=== PATIENT | male | born 1950 | race African-American/Black ===

== ENCOUNTER 2019-01-05 15:17 | Inpatient (IN) ==
[2019-01-05] MEDS ORDERED: Naloxone 0.4 MG/ML INJ IVP PRN (17:15)
[2019-01-05] MEDS ORDERED: Ibuprofen 600 MG TABLET PO PRN (17:25)
[2019-01-05] MEDS ORDERED: Melatonin 3 MG TABLET PO PRN (17:25)
--- NOTE | 2019-01-05 17:35 | Internal Med History&Physical ---
Date of Encounter: 01/05/19 Time of Encounter: 17:31 Internal Medicine - H&P: HPI Chief complaint: Right-sided leg swelling and pain. Admitted From: Hospital to Hospital Transfer Plans for Post Hospital Care: Transfer Psych Facility History of present illness: Mr. Domingo is a 68 year old male with past medical history significant for COPD, knee pain, hypertension, mood disorder, and anxiety was transferred from [place] inpatient psych facility to the [facility] for increase right leg pain and swelling. Patient reports that he has been complaining of this pain for past few days. Patient reports it does not hurt while he is resting. It hurts after he he walks 1 block. Patient had TYLER done at the Center which showed right-sided TYLER of 0.21 suggesting a severe peripheral arterial disease. Patient also had ultrasound done at [facility] which showed suspected occlusion of right mid SFA. Past Med Surg Social Fam HX - Past Medical History Medical history: GERD, hypertension, myocardial infarction, other (PAD) Psychiatric history: anxiety, depression, PTSD - Past Surgical History Surgical History: no surgical history Additional surgical history: tendons right arm - Social History Smoking Status: Current every day smoker Smokeless Tobacco Status: No Alcohol use: none Drug use: none - Family History Mother Hx Family Cardiac Disorders: Yes (HTN) Father Hx Family Cardiac Disorders: Yes (HTN) Internal Medicine - H&P: Meds Albuterol Sulfate [Proventil Inhaler] 2 puff IH Q4H PRN 09/10/18 [History] Benazepril HCl [Lotensin] 20 mg PO DAILY 09/10/18 [History] Duloxetine HCl [Cymbalta] 60 mg PO DAILY 09/10/18 [History] Ibuprofen [Ibu] 800 mg PO TID PRN 09/10/18 [History] Melatonin [Melatin] 12 mg PO HS 09/10/18 [History] Mirtazapine [Remeron] 7.5 mg PO HS 09/10/18 [History] Naloxone [Narcan] 4 mg NS AD 09/10/18 [History] Tiotropium [place] [Spiriva Respimat] 2 puff IH DAILY 09/10/18 [History] Topiramate [Topamax] 50 mg PO HS 09/10/18 [History] amLODIPine [Norvasc] 5 mg PO HS 09/10/18 [History] hydrOXYzine HCl [Hydroxyzine HCl] 25 mg PO BID PRN 09/10/18 [History] Aspirin Enteric Coated [Aspirin EC] 81 mg PO DAILY tablet. 09/13/18 [Rx] Atorvastatin [Lipitor] 20 mg PO HS tablet 09/13/18 [Rx] Nitroglycerin 0.4 mg SL Q5M PRN tab.subl 09/13/18 [Rx] Aspirin 81 mg PO DAILY #30 tab.chew 11/09/18 [Rx] Allergy/AdvReac Type Severity Reaction Status Date / Time haloperidol [From Haldol] AdvReac Swelling Verified 09/10/18 11:52 of Lip/Tongue/Throat All Systems PM: A 10-system review of systems was performed and is negative for pertinent findings except as documented above in the HPI. - Constitutional Vitals: Temp Pulse Resp BP Pulse Ox 97.8 F 61 16 174/92 99 01/05/19 16:50 01/05/19 16:50 01/05/19 16:50 01/05/19 16:50 01/05/19 16:50 General appearance: Present: cooperative, A&O X 3 Exam: General: A & O 3, In no acute distress HENNT: PERRLA. Head atraumatic and makes supple CVS S1 and S2 regular, no murmur RS: Clear to air entry bilaterally, no wheeze, no crackles Abdomen: Soft and nontender. Bowel sounds normal 4 Extremities: No cyanosis, clubbing, and edema. Right sided swelling. Capillary refill normal. Feeble pulse on right side Neurology: Cranial II through XII normal. Motor strength 5/5 bilaterally. Sensation intact Internal Med - H&P Results - Labs CBC & Chem 7: 01/05/19 17:34 - Assessment and Plan (1) Superficial femoral artery occlusion Current Visit: Yes Status: Acute Assessment and plan: Recent presents from the [place] inpatient psych facility [facility] for increased right lower pain and swelling upon walking. Patient had ultrasound done at [facility] which showed suspected superficial mid femoral artery occlusion. TYLER index of 0.21 on the right leg. Patient was transferred to the [facility] for further management. - Continue aspirin - Consider adding statin - Consult on tobacco abuse - Vascular surgery on consult awaiting input - Will get Echo today - We will consider getting CT of lower extremity after blood work. (2) Mood disorder Current Visit: Yes Status: Chronic Assessment and plan: Continue duloxetine and Topamax. (3) Anxiety Current Visit: Yes Status: Chronic Assessment and plan: Continue hydroxyzine as needed for anxiety. (4) Hypertension Current Visit: No Status: Chronic Assessment and plan: Continue home anti-hypertensive medication. Qualifiers: Hypertension type: essential hypertension Qualified Code(s): I10 - Essential (primary) hypertension (5) COPD (chronic obstructive pulmonary disease) Current Visit: Yes Status: Chronic Assessment and plan: Continue Lipitor inhaler as needed. Qualifiers: COPD type: unspecified COPD Qualified Code(s): J44.9 - Chronic obstructive pulmonary disease, unspecified (6) Insomnia Current Visit: Yes Status: Chronic Assessment and plan: Continue melatonin and trazodone. Qualifiers: Insomnia type: unspecified Qualified Code(s): G47.00 - Insomnia, unspecified - Time Spent With Patient Total time spent is greater than 50% in coordination of care (as documented) at patient's floor/unit and/or counseling patient: Greater than 35 minutes
[2019-01-05 17:54] LABS: Basophils # 0.1 K/mcL (0.0-0.2); Basophils % 0.9 %; Eosinophils # 0.3 K/mcL (0.0-0.6); Eosinophils % 2.9 %; Hematocrit 37.9 % (37.5-50.1); Hemoglobin 12.4 g/dL (12.9-16.9); Immature Granulocytes % 1.4 % (0-4); Lymphocytes # 2.2 K/mcL (0.6-4.6); Lymphocytes % 24.7 %; Mean Corpuscular HGB Conc 32.7 g/dL (31.6-35.5); Mean Corpuscular Hemoglobin 26.4 pg (28.0-33.3); Mean Corpuscular Volume 80.6 fL (83.0-100.0); Mean Platelet Volume 8.8 fL (9.4-12.4); Monocytes # 0.5 K/mcL (0.0-1.3); Monocytes % 6.1 %; Neutrophils # 5.6 K/mcL (1.6-8.9); Platelet Count 255 K/mcL (140-400); Red Cell Distribution Width 15.5 % (11.5-14.5); White Blood Count 8.7 K/mcL (4.3-11.1)
[2019-01-05 17:59] LABS: INR 0.9; Prothrombin Time 9.9 Seconds (9.4-12.1)
[2019-01-05 18:02] LABS: Activated Partial Thrombo Time 35.8 Seconds (26.0-36.0)
[2019-01-05 18:13] LABS: Alanine Aminotransferase 19 Units/L (7-52); Albumin 4.8 g/dL (3.5-5.7); Albumin/Globulin Ratio 1.7 (1.1-2.2); Alkaline Phosphatase 57 Units/L (34-104); Aspartate Amino Transferase 19 Units/L (13-39); BUN/Creatinine Ratio 19 (6-26); Bilirubin,Total 0.3 mg/dL (0.3-1.0); Blood Urea Nitrogen 18 mg/dL (8-23); Calcium 9.6 mg/dL (8.6-10.3); Carbon Dioxide 31 mEq/L (23-29); Chloride 102 mEq/L (98-107); Globulin 2.9 g/dL (2.4-3.5); Glucose 100 mg/dL (70-105); Osmolality,Calculated 288 (280-300); Potassium 3.8 mEq/L (3.5-5.1); Sodium 138 mEq/L (136-145); Total Protein 7.7 g/dL (6.4-8.9); eGFR For African Americans > 60 (> 60); eGFR For Non-African Americans > 60 (> 60)
[2019-01-05] MEDS ORDERED: Isovue-370 500 ML BOTTLE IVP ONE (18:15)
[2019-01-05] MEDS: amLODIPine 5 MG TABLET PO SCH (18:26)
[2019-01-05] MEDS: 0.9 % Sodium Chloride 1,000 ML IVC SCH (18:27)
[2019-01-05] MEDS: traZODone 50 MG TABLET PO SCH (21:35)
[2019-01-06 06:08] LABS: Basophils # 0.1 K/mcL (0.0-0.2); Basophils % 0.8 %; Eosinophils # 0.3 K/mcL (0.0-0.6); Eosinophils % 2.9 %; Hemoglobin 11.3 g/dL (12.9-16.9); Immature Granulocytes % 1.8 % (0-4); Lymphocytes # 2.5 K/mcL (0.6-4.6); Lymphocytes % 29.8 %; Mean Corpuscular HGB Conc 33.2 g/dL (31.6-35.5); Mean Corpuscular Hemoglobin 26.2 pg (28.0-33.3); Mean Corpuscular Volume 78.7 fL (83.0-100.0); Mean Platelet Volume 8.6 fL (9.4-12.4); Monocytes # 0.6 K/mcL (0.0-1.3); Monocytes % 7.1 %; Neutrophils # 4.9 K/mcL (1.6-8.9); Platelet Count 234 K/mcL (140-400); Red Blood Count 4.32 M/mcL (4.19-5.50); Red Cell Distribution Width 15.2 % (11.5-14.5); Segmented Neutrophils % 57.6 %; White Blood Count 8.5 K/mcL (4.3-11.1)
[2019-01-06 07:01] LABS: BUN/Creatinine Ratio 20 (6-26); Blood Urea Nitrogen 17 mg/dL (8-23); Calcium 8.9 mg/dL (8.6-10.3); Carbon Dioxide 23 mEq/L (23-29); Chloride 106 mEq/L (98-107); Chol/HDL Ratio 3.4 (0-4.9); Cholesterol 177 mg/dL (< 200); Glucose 98 mg/dL (70-105); HDL Cholesterol 52 mg/dL (40-59); LDL Cholesterol,Calculated 108 mg/dL (0-99); Osmolality,Calculated 288 (280-300); Sodium 138 mEq/L (136-145); Triglycerides 83 mg/dL (< 150); eGFR For African Americans > 60 (> 60); eGFR For Non-African Americans > 60 (> 60)
[2019-01-06] MEDS ORDERED: Perflutren Lipid Microsphere 1.3 ML in 0.9 % Sodium Chloride 8.7 ML IVP ONE (07:06)
[2019-01-06] MEDS: amLODIPine 5 MG TABLET PO SCH (08:18)
[2019-01-06] MEDS ORDERED: Topiramate 25 MG CAP.SPRINK PO SCH (09:00)
[2019-01-06] MEDS ORDERED: Aspirin 325 MG TABLET PO SCH (09:00)
[2019-01-06] MEDS ORDERED: Fluticasone Propionate Nasal 50 MCG/SPRAY BOTTLE NS SCH (09:00)
--- NOTE | 2019-01-06 09:58 | Vascular/Endovasc Consult Note ---
Date of Encounter: 01/06/19 Time of Encounter: 09:54 Assessment and Plan (1) PAD (peripheral artery disease) Current Visit: Yes Status: Chronic Patient has right superficial femoral artery occlusion and bilateral tibial artery disease. Patient has significant right lower extremity symptoms. As he is admitted now to proceed with right lower extremity revascularization later today. I reviewed this plan with the patient regarding risks and benefits as well as Locations and alternatives. Patient wishes to proceed as recommended. (2) Hypertension Current Visit: Yes Status: Chronic Patient has history of hypertension Qualifiers: Hypertension type: essential hypertension Qualified Code(s): I10 - Essential (primary) hypertension (3) Mood disorder Current Visit: Yes Status: Chronic Patient has history of psychiatric history and was in the inpatient unit at the [place]. - History of Present Illness Consult date: 01/06/19 Requesting physician: Kary Anaya Consult reason: Right lower extremity ischemia Chief complaint: Right lower extremity pain History of present illness: Mr. Domingo is a 68 year old male Who was transferred from the [place] psychiatric unit yesterday for further evaluation of right lower extremity symptoms. The patient was reported to have leg swelling and pain in the week and had a venous duplex scan which was negative. Symptoms were persistent. The [facility] then contacted the transfer center and requested that the patient be seen yesterday for further evaluation. The patient was transferred to the ER and was admitted to the hospitalist service. I was asked to see the patient. She underwent noninvasive testing as well as CT angiogram. Patient tells me that he has had right lower extremity pain for greater than 6 months. This pain has been progressive. His ambulation distance is less than a half a block. He states that when he walks he has severe pain in the right calf which causes him to stop. He needs to rest for 15-20 minutes to recover before he can walk again. He feels as us for right leg is going to go out from underneath him though he has not fallen to date. He denies any ischemic rest pain or nocturnal rest pain. He has no left lower extremity symptoms. He has had no previous right lower extremity endovascular or surgical interventions. I have personally reviewed the CT angiogram that was performed last night. This demonstrates occlusion of the distal right superficial femoral artery. The proximal superficial femoral artery is small in diameter. The patient has compromised runoff with occlusion of the right tibial perineal trunk. He has essentially functional 1 vessel runoff via the anterior tibial artery to the foot. Of note the peroneal artery does reconstitute distal to the tibioperoneal trunk occlusion. The left lower extremity also has the tibial artery disease with the right anterior tibial artery occluded. The superficial femoral popliteal arteries have nonsignificant disease. The patient has bilateral lower extremity occlusive disease. It is particularly low of the right lower extremity and essentially normal on the left. Past Med Surg Social Fam HX - Past Medical History Medical history: GERD, hypertension, myocardial infarction, other Psychiatric history: anxiety, depression, PTSD - Past Surgical History Surgical History: no surgical history Additional surgical history: tendons right arm - Social History Smoking Status: Current every day smoker Smokeless Tobacco Status: No Alcohol use: none Drug use: none - Family History Mother Hx Family Cardiac Disorders: Yes (HTN) Father Hx Family Cardiac Disorders: Yes (HTN) Medications and Allergies Albuterol Sulfate [Proventil Inhaler] 2 puff IH Q4H PRN 09/10/18 [History] Benazepril HCl [Lotensin] 20 mg PO DAILY 09/10/18 [History] Ibuprofen [Ibu] 800 mg PO TID PRN 09/10/18 [History] Melatonin [Melatin] 6 mg PO HS 09/10/18 [History] Topiramate [Topamax] 50 mg PO HS 09/10/18 [History] amLODIPine [Norvasc] 5 mg PO HS 09/10/18 [History] hydrOXYzine HCl [Hydroxyzine HCl] 25 mg PO BID PRN 09/10/18 [History] Aspirin 325 mg PO DAILY 01/06/19 [History] DULoxetine [Cymbalta] 30 mg PO DAILY 01/06/19 [History] Fluticasone Propionate Nasal [Flonase] 2 spr NS HS PRN 01/06/19 [History] Omeprazole [PriLOSEC] 20 mg PO DAILY 01/06/19 [History] Trazodone HCl 50 mg PO HS 01/06/19 [History] Allergy/AdvReac Type Severity Reaction Status Date / Time haloperidol [From Haldol] AdvReac Swelling Verified 09/10/18 11:52 of Lip/Tongue/Throat All Systems Review: The remainder of the systems were reviewed and are negative Exam Vital Signs, Last 4 Hours Temp Pulse Resp BP Pulse Ox 08/15/19 07:00 98.2 F 57 16 146/74 98 General: Present: Conversant, No Apparent Distress, Other (Thin elderly - [place] male.) HEENT: Present: Atraumatic, Normocephaly, Trachea midline Neck: Absent: JVD, Left Carotid bruit, Right Carotid bruit, Midline deformity, Tracheal deviation Cardiac: Present: Reg Rate and Rhythm, Normal S1 and S2, No Murmur Lungs: Present: Normal Breath Sounds, No Wheeze, Rales, Rhonchi Neuro: Present: Alert and responsive, No focal deficits noted, Cranial nerves grossly intact Abdomen: Present: Soft, Non-tender, Other (bruits). Absent: Masses Vascular: Present: Pulse, absent (Absent right popliteal and pedal pulses. Absent left dorsalis pedis pulse.), Pulse, normal (Normal bilateral femoral pulses. Normal left popliteal and posterior tibial pulse.). Absent: Bruit, Edema, Surgical incisions, Amputation(s) Skin: Present: No rashes noted on visualized skin Consult Discharge Plan - Plan [facility]errals: [facility] [Primary Care Provider] -
--- NOTE | 2019-01-06 11:19 | Internal Med Progress Note ---
Hospitalist Progress Note - Encounter Date of Encounter: 01/06/19 Time of Encounter: 11:17 - Subjective Interval History: Patient was seen and examined today. Patient reports he is doing fine. Patient denied any leg pain in his right side since he is resting in the hospital. Apart from this, patient denies any acute issues and concerns. - Exam Vitals: Temp Pulse Resp BP Pulse Ox 98.2 F 59 16 154/90 98 01/06/19 10:59 01/06/19 10:59 01/06/19 10:59 01/06/19 10:59 01/06/19 10:59 Exam: General: A & O 3, In no acute distress HENNT: PERRLA. Head atraumatic and makes supple CVS S1 and S2 regular, no murmur RS: Clear to air entry bilaterally, no wheeze, no crackles Abdomen: Soft and nontender. Bowel sounds normal 4 Extremities: No cyanosis, clubbing, and edema. Right sided swelling. Capillary refill normal. Feeble pulse on right side Neurology: Cranial II through XII normal. Motor strength 5/5 bilaterally. Sensation intact - Assessment and Plan (1) Superficial femoral artery occlusion Current Visit: Yes Status: Acute Assessment and Plan: CTA was done yesterday for the right leg pain and right severe peripheral arterial disease and it mentioned occlusion of the midportion of the superficial femoral artery. We will continue aspirin and statin. Vascular surgeries on consult and plan is to do surgery later today.. (2) Mood disorder Current Visit: Yes Status: Chronic Assessment and Plan: Continue duloxetine and Topamax. (3) Anxiety Current Visit: Yes Status: Chronic Assessment and Plan: Continue hydroxyzine as needed for anxiety. (4) Hypertension Current Visit: Yes Status: Chronic Assessment and Plan: Continue home anti-hypertensive medication. (5) COPD (chronic obstructive pulmonary disease) Current Visit: Yes Status: Chronic Assessment and Plan: Continue home inhaler as needed. (6) Insomnia Current Visit: Yes Status: Chronic Assessment and Plan: Continue melatonin and trazodone. - Time Spent with Patient Total time spent is greater than 50% in coordination of care (as documented) at patient's floor/unit and/or counseling patient: 25 - 35 minutes Plan of Care Discussed with: patient Internal Medicine: Result - Labs CBC & Chem 7: 01/06/19 04:52 01/06/19 04:52 Labs: Short CBC 01/05/19 01/06/19 Range/Units 17:34 04:52 WBC 8.7 8.5 (4.3-11.1) K/mcL Hgb 12.4 L 11.3 L (12.9-16.9) g/dL Hct 37.9 34.0 L (37.5-50.1) % Plt Count 255 234 (140-400) K/mcL Neutrophils # 5.6 4.9 (1.6-8.9) K/mcL BMP 01/05/19 01/06/19 17:34 04:52 Sodium 138 138 Potassium 3.8 4.0 Chloride 102 106 Carbon Dioxide 31 H 23 BUN 18 17 Creatinine 0.93 0.86 Glucose 100 98 Calcium 9.6 8.9 Liver Function 01/05/19 Range/Units 17:34 Total Bilirubin 0.3 (0.3-1.0) mg/dL AST 19 (13-39) Units/L ALT 19 (7-52) Units/L Alkaline Phosphatase 57 (34-104) Units/L Albumin 4.8 (3.5-5.7) g/dL - ABG Interpretation ABG results: PT/INR, D-dimer PT 9.9 Seconds (9.4-12.1) 01/05/19 17:34 - Impressions Impressions Aorta w/Runoff CTA 01/05/19 18:15 IMPRESSION: Complete occlusion within the mid aspect of the right superficial femoral artery. There is distal reconstitution. Multifocal plaque identified elsewhere, especially within the common femoral arteries bilaterally and within the popliteal arteries. There is a 3 vessel runoff on the right. A left 2 vessel runoff is present the of the posterior tibial and peroneal arteries. Aberrant left anterior tibial artery. There is a moderate-sized hiatal hernia. There is a possible mass within the herniated stomach (versus redundant gastric mucosa). Direct visualization is recommended. Dilation of the pancreatic duct within the pancreatic head, with probable intraductal stones. These changes probably reflect chronic pancreatitis. Nonetheless, nonemergent dedicated pancreatic MRI is recommended has intraductal pancreatic neoplasms are considered as well. D/ / Terrance Johnson MD / Terrance Johnson MD Interpreting Provider: Terrance Johnson MD Consult Discharge Plan - Plan [facility]errals: [facility] [Primary Care Provider] - (4) Hypertension Qualifiers: Hypertension type: essential hypertension Qualified Code(s): I10 - Essential (primary) hypertension (5) COPD (chronic obstructive pulmonary disease) Qualifiers: COPD type: unspecified COPD Qualified Code(s): J44.9 - Chronic obstructive pulmonary disease, unspecified (6) Insomnia Qualifiers: Insomnia type: unspecified Qualified Code(s): G47.00 - Insomnia, unspecified
[2019-01-06] MEDS: 0.9 % Sodium Chloride 1,000 ML IVC SCH (11:44)
[2019-01-06] MEDS ORDERED: Heparin 1,000 UNITS/500 mL 500 ML ONE (20:17)
[2019-01-06] MEDS ORDERED: *HR* FentaNYL (PF) 100 MCG/2 ML VIAL ONE (20:42)
[2019-01-06] MEDS ORDERED: Lidocaine -MPF 4% 5 ML AMPUL ONE (20:42)
[2019-01-06] MEDS ORDERED: Ondansetron 4 MG/2 ML VIAL ONE (20:42)
[2019-01-06] MEDS ORDERED: *HR* Propofol 200 MG/20 ML VIAL IVP ONE (20:42)
[2019-01-06] MEDS ORDERED: *HR* Rocuronium Bromide 50 MG/5 ML VIAL ONE (20:42)
[2019-01-06] MEDS ORDERED: Lidocaine -MPF 2% 2 ML VIAL ONE (20:42)
[2019-01-06] MEDS ORDERED: *HR* Midazolam HCl 2 MG/2 ML VIAL ONE (20:42)
[2019-01-07] MEDS ORDERED: Heparin 1,000 UNITS/500 mL 500 ML ONE (00:48)
--- NOTE | 2019-01-07 00:52 | Anesthesia Evaluation PreOp ---
Date of Encounter: 01/07/19 Time of Encounter: 00:58 - Past History Planned Operation: RLE Thrombectomy Cardiac History: ND (2014 "Mild Heart Attack" - NO stents, NO CABG. 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: Other (Anxiety/Depression, Mood disorder, Hx Psychiatric disturbance/SI) Other Medical History: GERD Anesthesia History: No Prior Anesthetic Complications, Past Anesthesia (RUE tendon surgery 1977) Alcohol Use: none Drug use: none Medications and Allergies Albuterol Sulfate [Proventil Inhaler] 2 puff IH Q4H PRN 09/10/18 [History] Benazepril HCl [Lotensin] 20 mg PO DAILY 09/10/18 [History] Ibuprofen [Ibu] 800 mg PO TID PRN 09/10/18 [History] Melatonin [Melatin] 6 mg PO HS 09/10/18 [History] Topiramate [Topamax] 50 mg PO HS 09/10/18 [History] amLODIPine [Norvasc] 5 mg PO HS 09/10/18 [History] hydrOXYzine HCl [Hydroxyzine HCl] 25 mg PO BID PRN 09/10/18 [History] Aspirin 325 mg PO DAILY 01/06/19 [History] DULoxetine [Cymbalta] 30 mg PO DAILY 01/06/19 [History] Fluticasone Propionate Nasal [Flonase] 2 spr NS HS PRN 01/06/19 [History] Omeprazole [PriLOSEC] 20 mg PO DAILY 01/06/19 [History] Trazodone HCl 50 mg PO HS 01/06/19 [History] Allergy/AdvReac Type Severity Reaction Status Date / Time haloperidol [From Haldol] AdvReac Swelling Verified 09/10/18 11:52 of Lip/Tongue/Throat - Meds/Allergy Pre-op Review Medications Reviewed: Yes Allergies Reviewed: Yes Beta Blockers on Current Med List: No Anesthesia Results - Labs 01/06/19 04:52 01/06/19 04:52 Impressions Aorta w/Runoff CTA 01/05/19 18:15 IMPRESSION: Complete occlusion within the mid aspect of the right superficial femoral artery. There is distal reconstitution. Multifocal plaque identified elsewhere, especially within the common femoral arteries bilaterally and within the popliteal arteries. There is a 3 vessel runoff on the right. A left 2 vessel runoff is present the of the posterior tibial and peroneal arteries. Aberrant left anterior tibial artery. There is a moderate-sized hiatal hernia. There is a possible mass within the herniated stomach (versus redundant gastric mucosa). Direct visualization is recommended. Dilation of the pancreatic duct within the pancreatic head, with probable intraductal stones. These changes probably reflect chronic pancreatitis. Nonetheless, nonemergent dedicated pancreatic MRI is recommended has intraductal pancreatic neoplasms are considered as well. D/ / Terrance Johnson MD / Terrance Johnson MD Interpreting Provider: Terrance Johnson MD - Imaging EKG: report reviewed (63bpm - Sinus rhythm Probable left atrial enlargement Borderline left axis deviation Abnormal R-wave progression, early transition Electronically Signed On 01-06-2019 14:33:25 EDT by Oswaldo Tomlinson) Additional studies: ECHO 01/05/2019 Impressions: Limited Echo LVEF 55-60%. Normal LV chamber size, wall thickness and function. Normal right ventricular structure and function. Left Ventricular Wall Motion: Rest Echo Findings All wall segments showed normal motion. Nuclear Stress Test 08/2018 Impression: Pharmacologic stress ECG is negative for ischemia at level of heart rate achieved. Gated EF = 59%. Medium sized, mild to moderate intensity, fixed inferior and inferoalteral perfusion defect with normal wall motion. These findings are most consistent with artifact. Small sized, mild intensity, reversible apical septal perfusion defect possibly due to a small are of ischemia. SDS 1. Anesthesia Exam Vital Signs Temp Pulse Resp BP Pulse Ox 01/06/19 20:26 97.4 F L 59 19 154/89 100 01/06/19 20:09 98 01/06/19 16:38 98.4 F 57 16 148/78 98 01/06/19 10:59 98.2 F 59 16 154/90 98 01/06/19 07:00 98.2 F 57 16 146/74 98 01/06/19 03:36 97.9 F 57 16 124/64 99 Intake and Output 01/06/19 01/06/19 01/07/19 15:59 23:59 07:59 Intake Total 1000 / 1000 Balance 1000 / 1000 Intake: IV Fluids 1000 / 1000 0.9 % Sodium Chloride 1,000 ML 1000 / 1000 @ 60 mls/hr IVC .[id number] [facility] Rx #:[id number] Height: 5'10" Weight: 148# BMI = 21 NPO (# of Hours): >12 hrs - HEENT Pupil (Motor): Pupils equal, EOMI Mallampati: III Teeth: Edentulous Oral Opening: Greater than 3 - COLLIERY CLERK LOC: Oriented COLLIERY CLERK Motor: Normal RUE, Normal LUE, Normal LLE, Normal Face, Deficit RLE COLLIERY CLERK Sensory: Normal: RUE, LUE, LLE, Face, Deficit: RLE (Pain with exertion) - Cardiac Rhythm: Regular Murmur: None - Pulmonary Breath Sounds: bilateral Clear Respiratory Effort: Symmetrical Anesthesia Assess/Plan ASA Score: 3 (HTN, Chol, PVDz, Smoker, COPD, PTSD/Anxiety/Depression) Level of consciousness: Cooperative, Oriented, Tranquil Anesthetic Plan: General Monitoring Plan: Standard Monitors, A-Line Recovery Plan: PACU Anes Supervising Prov Stmt: PT seen/evaluated, R&B Discussed, questions answered and consent obtained. Bobby Peña MD
[2019-01-07] MEDS ORDERED: *HR* FentaNYL (PF) 100 MCG/2 ML VIAL ONE (01:17)
[2019-01-07] MEDS ORDERED: *HR* Propofol 200 MG/20 ML VIAL IVP ONE (01:17)
[2019-01-07] MEDS ORDERED: Lidocaine -MPF 2% 2 ML VIAL ONE (01:17)
[2019-01-07] MEDS ORDERED: *HR* Midazolam HCl 2 MG/2 ML VIAL ONE (01:17)
[2019-01-07] MEDS ORDERED: Lidocaine -MPF 4% 5 ML AMPUL ONE (01:17)
[2019-01-07] MEDS ORDERED: *HR* Succinylcholine 200 MG/10 ML VIAL IVP ONE (01:17)
[2019-01-07] MEDS ORDERED: Acetaminophen IV 1,000 MG/100 ML INFUS..BTL IVPB ONE (01:30)
[2019-01-07] MEDS ORDERED: Famotidine 20 MG/2 ML VIAL ONE (01:39)
[2019-01-07] MEDS ORDERED: Acetaminophen IV 1,000 MG/100 ML INFUS..BTL ONE (01:39)
[2019-01-07] MEDS ORDERED: EPHEDrine 50 MG/ML VIAL ONE (02:22)
[2019-01-07] MEDS ORDERED: *HR* PHENYLEPHRINE 1,000 MCG/10 ML SYRINGE IVP ONE (02:53)
[2019-01-07] MEDS ORDERED: *HR* Heparin 5,000 UNIT/ML VIAL ONE (02:53)
[2019-01-07] MEDS: traZODone 50 MG TABLET PO SCH ×2 (03:30→20:40)
--- NOTE | 2019-01-07 04:10 | Anesthesia Procedures ---
Date of Encounter: 01/07/19 Time of Encounter: 00:00 Procedures: Anesthesia - Arterial Line Consent obtained: verbal consent Time out performed: Yes Sedation: Versed (mg): 2 Sedation: Fentanyl (mcg): 50 Supplemental Oxygen via Nasal Cannula (L/min): 3 Local Anesthetic: Lidocaine 1% Amount of Anesthetic used (mls): 1 Size (Gauge): 18 Length (inches): 1 3/4 Technique Used: sterile prep, guide wire technique, direct puncture technique Post-Procedure: line taped into place Patient tolerated procedure: well Complications: none Site: Radial L Vitals: See Anesthesia record Anes Supervising Prov Stmt: Pt tolerated procedure well and without immediate complication. Bobby Peña MD
[2019-01-07] MEDS ORDERED: Protamine Sulfate 50 MG/5 ML VIAL IVP ONE (04:13)
--- NOTE | 2019-01-07 05:03 | Operative Note ---
Date of procedure: 01/07/19 Pre-op diagnosis: PAD/ischemic right leg Post-op diagnosis: same Procedure: right femoral-above knee popliteal bypass with 6 mm PTFE with Distaflo Complications: 0 Anesthesia: SUGARA Surgeon: Fernando Campbell Was there an acute care nursing assistant present: No Estimated blood loss (cc): 75 Specimen: 0 Condition: stable Disposition: PACU Procedure in Detail: History Mr. Domingo is a 68-year-old -[place] male who is admitted on January 05 from the [facility] in direct transfer. He been having issues with his right lower extremity. Initially had a venous duplex scan which was negative. Because of his persistent symptoms he was asked to be transferred for further arterial workup. The patient claimed of significant right lower extremity pain that was limiting his ambulation. Ankle-brachial index was only 0.21. This was a dramatic drop from approximately 2 months earlier when his ankle-brachial index was approximately 0.6. Because of the severity of his symptoms and radical reduction in the ankle-brachial index CT Cherelle Alvarez was obtained and vascular surgery was consulted. Patient was found have a distal superficial femoral artery occlusion and tibial disease. In order to establish better flow emergency surgery was recommended. Procedure After informed consent was obtained the patient was taken to the operating room. General endotracheal anesthesia was established. The right lower extremity was sterilely prepped and draped. A timeout protocol was observed. An oblique incision was made in the right groin. Dissection was carried down to the common femoral artery and the femoral bifurcation. Selective control was obtained of the femoral vessels. 5000 units of heparin was administered intravenously. After an appropriate delay the vessels were clamped. An arteriotomy is made on the distal right common femoral artery. There was moderate atherosclerotic disease present. There is no fresh thrombus. A 4 American Rashi catheter was then passed through the superficial femoral artery. He would pass for a distance of approximately 30 cm. Despite multiple attempts it would not pass distally and this confirmed my suspicion that this represented a acute on chronic thrombotic issue with atherosclerosis rather than acute embolic event or acute thrombosis. Therefore a surgical thrombectomy was not feasible. Therefore a second incision was then made at the [id number] popliteal artery. Dissection was carried down to this vessel. This vessel was soft. There was signs of mild atherosclerotic disease and thickening. A subsartorial tunnel was then created. A 6 mm PTFE Distaflo graft was selected. This was then passed through the tunnel. The distal anastomosis was created first to the [id number] popliteal artery in an end-to-side fashion. After appropriate backbleeding and flushing the graft was clamped and the [place] vessel was opened. The proximal anastomosis was then performed. The previous arteriotomy was expanded both proximally and distally and the proximal anastomosis was fashioned in the end-to-side fashion with 6-0 Prolene suture. After appropriate backbleeding and flushing this graft was opened and pulsatile flow was then restored into the popliteal system. The patient has significant disease of the tibial arteries and a palpable pulse at the foot was not expected. The patient did demonstrate Doppler signals 2 over the peroneal and posterior tibial artery. With this done the wounds were irrigated. Hemostasis was achieved. Marcaine was infiltrated into the wounds. The wounds were then closed in layers using absorbable suture. There were no intraoperative complications. There were no intraoperative transfusions. The patient was extubated at the conclusion of the operation. He was then transported from the operating room to the recovery room in stable condition.
[2019-01-07] MEDS ORDERED: Ondansetron 4 MG/2 ML VIAL IVP PRN (06:32)
[2019-01-07] MEDS ORDERED: Melatonin 3 MG TABLET PO PRN (06:32)
[2019-01-07] MEDS ORDERED: Perflutren Lipid Microsphere 1.3 ML in 0.9 % Sodium Chloride 8.7 ML IVP ONE (06:32)
[2019-01-07] MEDS ORDERED: Naloxone 0.4 MG/ML INJ IVP PRN ×2 (06:32)
[2019-01-07] MEDS ORDERED: Acetaminophen 325 MG TABLET PO PRN (06:32)
[2019-01-07] MEDS: Topiramate 25 MG CAP.SPRINK PO SCH (07:42)
[2019-01-07] MEDS: Aspirin 325 MG TABLET PO SCH (07:42)
[2019-01-07] MEDS: amLODIPine 5 MG TABLET PO SCH (07:42)
[2019-01-07] MEDS: Fluticasone Propionate Nasal 50 MCG/SPRAY BOTTLE NS SCH (07:43)
[2019-01-07 08:32] LABS: Basophils % 0.3 %; Eosinophils % 0.4 %; Hematocrit 37.6 % (37.5-50.1); Immature Granulocytes % 1.1 % (0-4); Lymphocytes # 1.3 K/mcL (0.6-4.6); Mean Corpuscular HGB Conc 31.9 g/dL (31.6-35.5); Mean Corpuscular Hemoglobin 26.6 pg (28.0-33.3); Mean Corpuscular Volume 83.4 fL (83.0-100.0); Mean Platelet Volume 8.6 fL (9.4-12.4); Monocytes # 0.1 K/mcL (0.0-1.3); Monocytes % 1.1 %; Platelet Count 203 K/mcL (140-400); Red Blood Count 4.51 M/mcL (4.19-5.50); Red Cell Distribution Width 15.3 % (11.5-14.5); Segmented Neutrophils % 85.1 %
[2019-01-07 08:33] LABS: Neutrophils # 9.4 K/mcL (1.6-8.9)
[2019-01-07 09:01] LABS: Platelet Estimate Normal (Normal)
[2019-01-07 09:25] LABS: BUN/Creatinine Ratio 18 (6-26); Blood Urea Nitrogen 18 mg/dL (8-23); Carbon Dioxide 20 mEq/L (23-29); Chloride 105 mEq/L (98-107); Glucose 142 mg/dL (70-105); Osmolality,Calculated 284 (280-300); Potassium 3.8 mEq/L (3.5-5.1); Sodium 135 mEq/L (136-145); eGFR For African Americans > 60 (> 60); eGFR For Non-African Americans > 60 (> 60)
--- NOTE | 2019-01-07 12:30 | Internal Med Progress Note ---
Hospitalist Progress Note - Encounter Date of Encounter: 01/07/19 Time of Encounter: 12:28 - Subjective Interval History: He was seen and examined at bedside. Patient is status post vascular surgery for the complete occlusion of superficial femoral artery in the midportion. Patient reports his pain is well controlled. Denies any acute issues and cliff rns overnight - Exam Vitals: Temp Pulse Resp BP Pulse Ox 97.5 F L 73 14 133/73 97 01/07/19 11:53 01/07/19 11:53 01/07/19 11:53 01/07/19 11:53 01/07/19 11:53 Exam: General: A & O 3, In no acute distress HENNT: PERRLA. Head atraumatic and makes supple CVS S1 and S2 regular, no murmur RS: Clear to air entry bilaterally, no wheeze, no crackles Abdomen: Soft and nontender. Bowel sounds normal 4 Extremities: No cyanosis, clubbing, and edema. Right sided swelling. Capillary refill normal. Feeble pulse on right side. Dressings placed in the right medial midthigh region. Neurology: Cranial II through XII normal. Motor strength 5/5 bilaterally. Sensation intact - Assessment and Plan (1) Superficial femoral artery occlusion Current Visit: Yes Status: Acute Assessment and Plan: Patient is status post revascularization surgery. POD # 1. Dressings placed. Pain is well-controlled. We will follow further recommendation from muscular surgery. The patient was surgery input. Continue to do pain management as needed. Continue aspirin and statin. (2) Mood disorder Current Visit: Yes Status: Chronic Assessment and Plan: Continue duloxetine and Topamax. (3) Anxiety Current Visit: Yes Status: Chronic Assessment and Plan: Continue hydroxyzine as needed for anxiety. (4) Hypertension Current Visit: Yes Status: Chronic Assessment and Plan: Continue home anti-hypertensive medication. (5) COPD (chronic obstructive pulmonary disease) Current Visit: Yes Status: Chronic Assessment and Plan: Continue home inhaler as needed. (6) Insomnia Current Visit: Yes Status: Chronic Assessment and Plan: Continue melatonin and trazodone. - Time Spent with Patient Total time spent is greater than 50% in coordination of care (as documented) at patient's floor/unit and/or counseling patient: 25 - 35 minutes Plan of Care Discussed with: patient Internal Medicine: Result - Labs CBC & Chem 7: 01/07/19 08:19 01/07/19 08:19 Labs: Short CBC 01/07/19 Range/Units 08:19 WBC 11.0 (4.3-11.1) K/mcL Hgb 12.0 L (12.9-16.9) g/dL Hct 37.6 (37.5-50.1) % Plt Count 203 (140-400) K/mcL Neutrophils # 9.4 H (1.6-8.9) K/mcL BMP 01/07/19 08:19 Sodium 135 L Potassium 3.8 Chloride 105 Carbon Dioxide 20 L BUN 18 Creatinine 1.01 Glucose 142 H Calcium 9.0 - ABG Interpretation ABG results: PT/INR, D-dimer PT 9.9 Seconds (9.4-12.1) 01/05/19 17:34 Consult Discharge Plan - Plan [facility]: [facility] [Primary Care Provider] - (4) Hypertension Qualifiers: Hypertension type: essential hypertension Qualified Code(s): I10 - Essential (primary) hypertension (5) COPD (chronic obstructive pulmonary disease) Qualifiers: COPD type: unspecified COPD Qualified Code(s): J44.9 - Chronic obstructive pulmonary disease, unspecified (6) Insomnia Qualifiers: Insomnia type: unspecified Qualified Code(s): G47.00 - Insomnia, unspecified
--- NOTE | 2019-01-07 14:37 | Vascular/[facility] Progress Note ---
Date of Encounter: 01/07/19 Time of Encounter: 14:31 - Assessment and plan (1) PAD (peripheral artery disease) Current Visit: Yes Status: Chronic Patient is status post right femoral-popliteal bypass graft. Patient is doing well. He is symptomatically improved. From a vascular surgery perspective it would be appropriate for patient to be transferred back to the [facility] as early as tomorrow. We will ask the patient to come back to the vascular surgery clinic in 2 weeks. I have reviewed with the patient the postoperative care for the wounds. All questions were answered. (2) Hypertension Current Visit: Yes Status: Chronic Patient has history of hypertension Qualifiers: Hypertension type: essential hypertension Qualified Code(s): I10 - Essential (primary) hypertension (3) Mood disorder Current Visit: Yes Status: Chronic Patient has history of psychiatric history and was in the inpatient unit at the [facility]. - Subjective Interval history: Patient is postoperative day #0 from a right femoral to [id number] popliteal artery bypass graft with PTFE. His operation was completed at approximate 5:30 AM. On my visit with him this afternoon he notes that his right lower extremity and right foot are feeling significantly better. He has some expected postoperative pain but otherwise is doing very well. Vital Signs, Last 4 Hours Temp Pulse Resp BP Pulse Ox 01/07/19 11:53 97.5 F L 73 14 133/73 97 - Physical Examination General: Present: Conversant, No Apparent Distress, Well developed, Well nourished HEENT: Present: Atraumatic Neck: Absent: JVD Vascular: Present: Normal capillary refill, Pulse, normal (Patient has a palpable right femoral and a right popliteal pulse.), Color/Temperature (Right foot is warm.), Surgical incisions (Patient has dry dressings over right thigh surgical incisions), Other (Patient has Doppler signals at the right ankle.) Results 01/07/19 08:19 01/07/19 08:19 Lab Results, Last 24 hours 01/07/19 01/07/19 08:19 08:19 WBC 11.0 Hgb 12.0 L Hct 37.6 Plt Count 203 Sodium 135 L Potassium 3.8 Chloride 105 Carbon Dioxide 20 L BUN 18 Creatinine 1.01 Glucose 142 H Calcium 9.0 Consult Discharge Plan - Plan Additional Instructions: Remove surgical dressings on Thursday, January 08 Keep surgical sites dry for a total of 5 days following surgery Patient may ambulate as tolerated. Patient may use stairs as tolerated. No lifting greater than 10 pounds. No driving. No manual labor. [facility]errals: [facility] [Primary Care Provider] - Fernando Campbell MD [Partnered Physician] - (Follow-up in 2 weeks in vascular surgery clinic)
[2019-01-08] MEDS: *HR* HYDROcodone/Acet 5/325 mg TABLET PO PRN ×3 (05:29→21:38)
[2019-01-08 07:33] LABS: Basophils % 0.2 %; Eosinophils % 0.3 %; Hematocrit 32.3 % (37.5-50.1); Hemoglobin 10.8 g/dL (12.9-16.9); Immature Granulocytes % 0.7 % (0-4); Lymphocytes # 2.4 K/mcL (0.6-4.6); Lymphocytes % 14.7 %; Mean Corpuscular HGB Conc 33.4 g/dL (31.6-35.5); Mean Corpuscular Hemoglobin 26.3 pg (28.0-33.3); Mean Corpuscular Volume 78.6 fL (83.0-100.0); Mean Platelet Volume 9.2 fL (9.4-12.4); Monocytes # 1.3 K/mcL (0.0-1.3); Monocytes % 8.4 %; Neutrophils # 12.1 K/mcL (1.6-8.9); Platelet Count 239 K/mcL (140-400); Red Blood Count 4.11 M/mcL (4.19-5.50); Red Cell Distribution Width 14.8 % (11.5-14.5); Segmented Neutrophils % 75.7 %
[2019-01-08 07:55] LABS: BUN/Creatinine Ratio 22 (6-26); Blood Urea Nitrogen 19 mg/dL (8-23); Calcium 9.2 mg/dL (8.6-10.3); Carbon Dioxide 22 mEq/L (23-29); Chloride 105 mEq/L (98-107); Glucose 128 mg/dL (70-105); Osmolality,Calculated 288 (280-300); Potassium 3.7 mEq/L (3.5-5.1); Sodium 137 mEq/L (136-145); eGFR For African Americans > 60 (> 60); eGFR For Non-African Americans > 60 (> 60)
[2019-01-08] MEDS: Topiramate 25 MG CAP.SPRINK PO SCH (09:34)
[2019-01-08] MEDS: amLODIPine 5 MG TABLET PO SCH (09:34)
[2019-01-08] MEDS: Aspirin 325 MG TABLET PO SCH (09:34)
[2019-01-08] MEDS: Fluticasone Propionate Nasal 50 MCG/SPRAY BOTTLE NS SCH (09:35)
--- NOTE | 2019-01-08 10:39 | Vascular/[facility] Progress Note ---
Date of Encounter: 01/08/19 Time of Encounter: 10:37 Discussion with patient/family: Assessment: Satisfactory progress status post right femoral-popliteal bypass graft for critical limb ischemia Plan: It appears that the patient will be going back to the [facility] later today. This appears quite reasonable at this point in time. We would advocate dry dressings to the groin and popliteal region. We would encourage ambulation. Patient should see Dr. Sanders back in the clinic in 1-2 weeks. Call for any further issues. - Subjective Interval history: This 68-year-old black male is seen status post urgent femoropopliteal bypass graft associated with his right leg. Patient indicates that he is mildly uncomfortable especially when he walks. This is all incisional. The discomfort is all in the thigh region and he states that his foot is very significantly improved over preoperative. No additional new complaints are given at this time. Vital Signs, Last 4 Hours Temp Pulse Resp BP Pulse Ox 01/08/19 07:39 98.2 F 60 18 142/43 99 Exam: 68-year-old black male in no acute distress. He is awake, alert, coherent, and cooperative. He was standing at bedside and beginning to do some ambulation. The incisions are clean, dry, intact, and well approximated. The foot is warm to the touch, pulses are not palpable but are reported as Doppler audible. Results 01/08/19 07:02 01/08/19 07:02 Lab Results, Last 24 hours 01/08/19 01/08/19 07:02 07:02 WBC 16.0 H Hgb 10.8 L Hct 32.3 L Plt Count 239 Sodium 137 Potassium 3.7 Chloride 105 Carbon Dioxide 22 L BUN 19 Creatinine 0.86 Glucose 128 H Calcium 9.2 Consult Discharge Plan - Plan Additional Instructions: Remove surgical dressings on Thursday, January 08 Keep surgical sites dry for a total of 5 days following surgery Patient may ambulate as tolerated. Patient may use stairs as tolerated. No lifting greater than 10 pounds. No driving. No manual labor. Referrals: [facility],PCP [Primary Care Provider] - Fernando Campbell MD [Partnered Physician] - (Follow-up in 2 weeks in vascular surgery clinic Web Requested 01/08/19)
--- NOTE | 2019-01-08 17:10 | Internal Med Progress Note ---
Hospitalist Progress Note - Encounter Date of Encounter: 01/08/19 Time of Encounter: 17:08 - Subjective Interval History: He was seen and examined at bedside. Patient is status post vascular surgery for the complete occlusion of superficial femoral artery in the midportion. POD # 2. Pt reports that he ahs episode of sevre pain over night, however it is well controlled per him this morning after he received pain medications. Pt is currently on [place] 5 and Tylenol 650 for his pain management. Will continue to monitor him pending acceptance at [facility]. - Exam Vitals: Temp Pulse Resp BP Pulse Ox 98.6 F 69 18 136/53 97 01/08/19 16:05 01/08/19 16:05 01/08/19 16:05 01/08/19 16:05 01/08/19 16:05 Exam: General: A & O 3, In no acute distress HENNT: PERRLA. Head atraumatic and makes supple CVS S1 and S2 regular, no murmur RS: Clear to air entry bilaterally, no wheeze, no crackles Abdomen: Soft and nontender. Bowel sounds normal 4 Extremities: No cyanosis, clubbing, and edema. Right sided swelling. Capillary refill normal. Feeble pulse on right side. Dressings placed in the right medial midthigh region. Per vascular surgery patientneeds dry dressing Neurology: Cranial II through XII normal. Motor strength 5/5 bilaterally. Sensation intact - Assessment and Plan (1) Superficial femoral artery occlusion Current Visit: Yes Status: Acute Assessment and Plan: Patient is status post revascularization surgery. POD # 2. Dry Dressings placed. Pain is well-controlled. Pt is gettinh [place] 5 and Tylenol 650 mg for pain control. Continue to do pain management as needed. Continue aspirin and statin. Plan is to discharge patient later today or tomorrow. (2) Mood disorder Current Visit: Yes Status: Chronic Assessment and Plan: Continue duloxetine and Topamax. (3) Anxiety Current Visit: Yes Status: Chronic Assessment and Plan: Continue hydroxyzine as needed for anxiety. (4) Hypertension Current Visit: Yes Status: Chronic Assessment and Plan: Continue home anti-hypertensive medication. (5) COPD (chronic obstructive pulmonary disease) Current Visit: Yes Status: Chronic Assessment and Plan: Continue home inhaler as needed. (6) Insomnia Current Visit: Yes Status: Chronic Assessment and Plan: Continue melatonin and trazodone. - Time Spent with Patient Total time spent is greater than 50% in coordination of care (as documented) at patient's floor/unit and/or counseling patient: 25 - 35 minutes Plan of Care Discussed with: patient Internal Medicine: Result - Labs CBC & Chem 7: 01/08/19 07:02 01/08/19 07:02 Labs: Short CBC 01/08/19 Range/Units 07:02 WBC 16.0 H (4.3-11.1) K/mcL Hgb 10.8 L (12.9-16.9) g/dL Hct 32.3 L (37.5-50.1) % Plt Count 239 (140-400) K/mcL Neutrophils # 12.1 H (1.6-8.9) K/mcL BMP 01/08/19 07:02 Sodium 137 Potassium 3.7 Chloride 105 Carbon Dioxide 22 L BUN 19 Creatinine 0.86 Glucose 128 H Calcium 9.2 - ABG Interpretation ABG results: PT/INR, D-dimer PT 9.9 Seconds (9.4-12.1) 01/05/19 17:34 Consult Discharge Plan - Plan Additional Instructions: Remove surgical dressings on Thursday, January 08 Keep surgical sites dry for a total of 5 days following surgery Patient may ambulate as tolerated. Patient may use stairs as tolerated. No lifting greater than 10 pounds. No driving. No manual labor. [facility]errals: [facility] [Primary Care Provider] - Fernando Campbell MD [Partnered Physician] - (Follow-up in 2 weeks in vascular surgery clinic Web Requested 01/08/19) (4) Hypertension Qualifiers: Hypertension type: essential hypertension Qualified Code(s): I10 - Essential (primary) hypertension (5) COPD (chronic obstructive pulmonary disease) Qualifiers: COPD type: unspecified COPD Qualified Code(s): J44.9 - Chronic obstructive pulmonary disease, unspecified (6) Insomnia Qualifiers: Insomnia type: unspecified Qualified Code(s): G47.00 - Insomnia, unspecified
[2019-01-08] MEDS: traZODone 50 MG TABLET PO SCH (21:34)
[2019-01-09 05:04] LABS: Basophils # 0.1 K/mcL (0.0-0.2); Basophils % 0.4 %; Eosinophils # 0.1 K/mcL (0.0-0.6); Eosinophils % 0.8 %; Hematocrit 31.1 % (37.5-50.1); Hemoglobin 10.2 g/dL (12.9-16.9); Immature Granulocytes % 0.6 % (0-4); Lymphocytes # 2.3 K/mcL (0.6-4.6); Lymphocytes % 16.5 %; Mean Corpuscular HGB Conc 32.8 g/dL (31.6-35.5); Mean Corpuscular Volume 79.3 fL (83.0-100.0); Mean Platelet Volume 9.5 fL (9.4-12.4); Monocytes # 1.5 K/mcL (0.0-1.3); Monocytes % 10.4 %; Neutrophils # 10.1 K/mcL (1.6-8.9); Platelet Count 224 K/mcL (140-400); Red Blood Count 3.92 M/mcL (4.19-5.50); Red Cell Distribution Width 15.2 % (11.5-14.5); Segmented Neutrophils % 71.3 %; White Blood Count 14.1 K/mcL (4.3-11.1)
[2019-01-09] MEDS: Aspirin 325 MG TABLET PO SCH (08:01)
[2019-01-09] MEDS: *HR* HYDROcodone/Acet 5/325 mg TABLET PO PRN ×2 (08:01→19:52)
[2019-01-09] MEDS: Topiramate 25 MG CAP.SPRINK PO SCH (08:02)
[2019-01-09] MEDS: Fluticasone Propionate Nasal 50 MCG/SPRAY BOTTLE NS SCH (08:02)
[2019-01-09] MEDS: amLODIPine 5 MG TABLET PO SCH (08:02)
--- NOTE | 2019-01-09 10:13 | Vascular/[facility]as Progress Note ---
Date of Encounter: 01/09/19 Time of Encounter: 10:10 Discussion with patient/family: Assessment: Satisfactory postoperative course status post right femoral- popliteal bypass graft with evidence of continued flow and no evidence of infective process. Plan: The patient is for transfer back to the [facility] as soon as it becomes reasonably feasible to do so. It would appear that this is probably going to happen tomorrow. - Subjective Interval history: This 68-year-old black male seen in follow-up status post right femoral- popliteal bypass graft for an acutely ischemic right lower extremity. Patient gives no active complaints at this point in time. He states he is ambulating reasonably well and has no calf or foot pain with ambulation. He does have incisional pain, but it appears to be a normal amount of discomfort. Vital Signs, Last 4 Hours Temp Pulse Resp BP Pulse Ox 01/09/19 06:51 98.0 F 74 18 136/84 98 Exam: 68-year-old black male in no acute distress. He is awake, alert, coherent, and cooperative. Both the groin and popliteal incisions are clean, dry, intact, and well approximated. There is no erythema or induration. There is no evidence of infection. Patient has a normal white blood cell count and is afebrile. There is no excessive pain or tenderness noted in the area of either incision. The foot is warm and has complete range of motion. Doppler pulses present. Results 01/09/19 04:34 01/08/19 07:02 Lab Results, Last 24 hours 01/09/19 04:34 WBC 14.1 H Hgb 10.2 L Hct 31.1 L Plt Count 224 Consult Discharge Plan - Plan Additional Instructions: Remove surgical dressings on January 08 Keep surgical sites dry for a total of 5 days following surgery Patient may ambulate as tolerated. Patient may use stairs as tolerated. No lifting greater than 10 pounds. No driving. No manual labor. Referrals: [facility],PCP [Primary Care Provider] - Fernando Campbell MD [Partnered Physician] - (Follow-up in 2 weeks in vascular surgery clinic Web Requested 01/08/19)
[2019-01-09 14:59] LABS: Hematocrit 29.5 % (37.5-50.1); Hemoglobin 9.9 g/dL (12.9-16.9); Mean Corpuscular HGB Conc 33.6 g/dL (31.6-35.5); Mean Corpuscular Hemoglobin 26.6 pg (28.0-33.3); Mean Corpuscular Volume 79.3 fL (83.0-100.0); Mean Platelet Volume 9.3 fL (9.4-12.4); Platelet Count 217 K/mcL (140-400); Red Blood Count 3.72 M/mcL (4.19-5.50); Red Cell Distribution Width 15.1 % (11.5-14.5); White Blood Count 13.3 K/mcL (4.3-11.1)
[2019-01-09 16:11] LABS: Bilirubin,Urine Negative (Negative); Blood,Urine Negative (Negative); Clarity,Urine Clear (Clear); Color,Urine Yellow (Yellow); Glucose,Urine (UA) Normal (Normal); Ketones,Urine Negative (Negative); Leukocyte Esterase,Urine Negative (Negative); Nitrite,Urine Negative (Negative); PH,Urine 6.5 pH Units (5.0-8.0); Protein,Urine Negative (Neg-Trace); Specific Gravity,Urine 1.013 (1.010-1.025); Urobilinogen,Urine Normal (Normal)
--- NOTE | 2019-01-09 17:38 | Internal Med Progress Note ---
Hospitalist Progress Note - Encounter Date of Encounter: 01/09/19 Time of Encounter: 17:36 - Subjective Interval History: She was seen and examined at bedside today. Patient reports of moderate pain at surgical site. We will continue to color patient's pain with Conrad and Tylenol. Anticipate discharge today or tomorrow - Exam Vitals: Temp Pulse Resp BP Pulse Ox 98.3 F 70 18 122/73 95 01/09/19 16:17 01/09/19 16:17 01/09/19 16:17 01/09/19 16:17 01/09/19 16:17 Exam: General: A & O 3, In no acute distress HENNT: PERRLA. Head atraumatic and makes supple CVS S1 and S2 regular, no murmur RS: Clear to air entry bilaterally, no wheeze, no crackles Abdomen: Soft and nontender. Bowel sounds normal 4 Extremities: No cyanosis, clubbing, and edema. Right sided swelling. Capillary refill normal. Feeble pulse on right side. Dressings placed in the right medial midthigh region. Per vascular surgery patientneeds dry dressing Neurology: Cranial II through XII normal. Motor strength 5/5 bilaterally. Sensation intact - Assessment and Plan (1) Leukocytosis Current Visit: Yes Status: Acute Assessment and Plan: Patient's white count was elevated at 16 status post surgery trended down to 13.3 today. Patient does not have any signs of infection. Leukocytosis is likely reactive to surgery. Chest x-ray done today which showed atelectasis. UA was done today which was negative for any infection. - Continue to monitor patient with pain management - Incentive spirometry for atelectasis - We will repeat CBC tomorrow - We will monitor for any signs of infection. (2) Superficial femoral artery occlusion Current Visit: Yes Status: Acute Assessment and Plan: Patient is status post revascularization surgery. POD # 3. Dry Dressings lucio darryl. Pain is well-controlled. Pt is getting [place] 5 and Tylenol 650 mg for pain control. Continue to do pain management as needed. Continue aspirin and statin. Plan is to discharge patient later today or tomorrow. (3) Mood disorder Current Visit: Yes Status: Chronic Assessment and Plan: Continue duloxetine and Topamax. (4) Anxiety Current Visit: Yes Status: Chronic Assessment and Plan: Continue hydroxyzine as needed for anxiety. (5) Hypertension Current Visit: Yes Status: Chronic Assessment and Plan: Continue home anti-hypertensive medication. (6) COPD (chronic obstructive pulmonary disease) Current Visit: Yes Status: Chronic Assessment and Plan: Continue home inhaler as needed. (7) Insomnia Current Visit: Yes Status: Chronic Assessment and Plan: Continue melatonin and trazodone. - Time Spent with Patient Total time spent is greater than 50% in coordination of care (as documented) at patient's floor/unit and/or counseling patient: Internal Medicine: Result - Labs CBC & Chem 7: 01/09/19 14:37 01/08/19 07:02 Labs: Short CBC 01/09/19 01/09/19 Range/Units 04:34 14:37 WBC 14.1 H 13.3 H (4.3-11.1) K/mcL Hgb 10.2 L 9.9 L (12.9-16.9) g/dL Hct 31.1 L 29.5 L (37.5-50.1) % Plt Count 224 217 (140-400) K/mcL Neutrophils # 10.1 H (1.6-8.9) K/mcL Urine 01/09/19 Range/Units 15:39 Urine Color Yellow (Yellow) Urine Clarity Clear (Clear) Urine pH 6.5 (5.0-8.0) pH Units Ur Specific [place] 1.013 (1.010-1.025) Urine Protein Negative (Neg-Trace) mg/dL Urine Glucose (UA) Normal (Normal) mg/dL - ABG Interpretation ABG results: PT/INR, D-dimer PT 9.9 Seconds (9.4-12.1) 01/05/19 17:34 - Impressions Impressions Chest X-Ray 01/09/19 07:08 IMPRESSION: Curvilinear opacity in the left lower lobe is favored to represent atelectasis. Atypical appearance for infection although not entirely excluded. D/ / Pete Bess / Pete Bess Interpreting Provider: Pete Bess Consult Discharge Plan - Plan Additional Instructions: Remove surgical dressings on Thursday, January 08 Keep surgical sites dry for a total of 5 days following surgery Patient may ambulate as tolerated. Patient may use stairs as tolerated. No lifting greater than 10 pounds. No driving. No manual labor. [facility]errals: [facility] [Primary Care Provider] - Fernando Campbell MD [Partnered Physician] - (Follow-up in 2 weeks in vascular surgery clinic Web Requested 01/08/19) (5) Hypertension Qualifiers: Hypertension type: essential hypertension Qualified Code(s): I10 - Essential (primary) hypertension (6) COPD (chronic obstructive pulmonary disease) Qualifiers: COPD type: unspecified COPD Qualified Code(s): J44.9 - Chronic obstructive pulmonary disease, unspecified (7) Insomnia Qualifiers: Insomnia type: unspecified Qualified Code(s): G47.00 - Insomnia, unspecified
[2019-01-09] MEDS: traZODone 50 MG TABLET PO SCH (19:52)
[2019-01-10 05:36] LABS: Basophils # 0.1 K/mcL (0.0-0.2); Basophils % 0.6 %; Eosinophils # 0.2 K/mcL (0.0-0.6); Eosinophils % 1.9 %; Hematocrit 30.7 % (37.5-50.1); Hemoglobin 10.1 g/dL (12.9-16.9); Immature Granulocytes % 1.1 % (0-4); Lymphocytes # 2.1 K/mcL (0.6-4.6); Lymphocytes % 17.8 %; Mean Corpuscular HGB Conc 32.9 g/dL (31.6-35.5); Mean Corpuscular Hemoglobin 26.2 pg (28.0-33.3); Mean Corpuscular Volume 79.5 fL (83.0-100.0); Mean Platelet Volume 9.4 fL (9.4-12.4); Monocytes # 1.3 K/mcL (0.0-1.3); Monocytes % 11.3 %; Neutrophils # 7.9 K/mcL (1.6-8.9); Platelet Count 241 K/mcL (140-400); Red Blood Count 3.86 M/mcL (4.19-5.50); Red Cell Distribution Width 15.1 % (11.5-14.5); Segmented Neutrophils % 67.3 %; White Blood Count 11.8 K/mcL (4.3-11.1)
[2019-01-10] MEDS: Topiramate 25 MG CAP.SPRINK PO SCH (08:09)
[2019-01-10] MEDS: amLODIPine 5 MG TABLET PO SCH (08:10)
[2019-01-10] MEDS: Aspirin 325 MG TABLET PO SCH (08:10)
[2019-01-10] MEDS: Fluticasone Propionate Nasal 50 MCG/SPRAY BOTTLE NS SCH (08:11)
[2019-01-10] MEDS: *HR* HYDROcodone/Acet 5/325 mg TABLET PO PRN (08:53)
[2019-01-10 11:08] VITALS: BP 111/61
--- NOTE | 2019-01-10 11:14 | Discharge Summary ---
- NOTES TO OUTPATIENT PROVIDER Notes to Outpatient Provider: Patient is a 68-year-old male who was presented to the hospital from the [facility] for occlusion of the superficial femoral artery on the right side. Patient had CTA done which showed Complete occlusion within the mid aspect of the right superficial femoral artery. School surgery was on consult and patient got the muscularis and surgery. Patient tolerated procedure well. Patient was discharged in stable condition. Patient was advised to dry dressing for 5 days after surgery. Ambulate as tolerated. Do not lift weight more than 10 pounds. Follow up with [facility] surgeon in the office in 2 weeks. Estimated PT Needs at Discharge: Return to Prior Living Situation/Arrangement Date of Encounter: 01/10/19 Time of Encounter: 11:11 - Discharge Diagnosis (1) Leukocytosis Priority: Secondary Status: Acute Qualifiers: Leukocytosis type: unspecified Qualified Code(s): D72.829 - Elevated white blood cell count, unspecified (2) Superficial femoral artery occlusion Priority: Primary Status: Acute (3) Mood disorder Priority: Secondary Status: Chronic (4) Anxiety Priority: Secondary Status: Chronic (5) Hypertension Priority: Secondary Status: Chronic Qualifiers: Hypertension type: essential hypertension Qualified Code(s): I10 - Essential (primary) hypertension (6) COPD (chronic obstructive pulmonary disease) Priority: Secondary Status: Chronic Qualifiers: COPD type: unspecified COPD Qualified Code(s): J44.9 - Chronic obstructive pulmonary disease, unspecified (7) Insomnia Priority: Secondary Status: Chronic Qualifiers: Insomnia type: unspecified Qualified Code(s): G47.00 - Insomnia, unspecified Hospital course: Mr. Domingo is a 68 year old male who was presented to the hospital from the [facility] for occlusion of the superficial femoral artery on the right side. Patient had CTA done which showed Complete occlusion within the mid aspect of the right superficial femoral artery. School surgery was on consult and patient got the muscularis and surgery. Patient tolerated procedure well. Patient was discharged in stable condition. Patient was advised to dry dressing for 5 days after surgery. Ambulate as tolerated. Do not lift weight more than 10 pounds. Follow up with [facility] surgeon in the office in 2 weeks. Discharge discussed with: patient, social work, case management, cloud consultant - Time Spent with Patient Total time spent providing and/or coordinating discharge services: 40 Time spent: Greater than 30 minutes - Discharge Medications Prescriptions: New HYDROcodone/Acet 5/325 mg [[place] 5-325 mg] 1 tab PO Q6HR PRN 7 Days #28 tablet PRN Reason: Moderate Pain Continued hydrOXYzine HCl [Hydroxyzine HCl] 25 mg PO BID PRN PRN Reason: Anxiety Albuterol Sulfate [Proventil Inhaler] 2 puff IH Q4H PRN PRN Reason: Shortness Of Breath Melatonin [Melatin] 6 mg PO HS Benazepril HCl [Lotensin] 20 mg PO DAILY amLODIPine [Norvasc] 5 mg PO HS Topiramate [Topamax] 50 mg PO HS Aspirin 325 mg PO DAILY DULoxetine [Cymbalta] 30 mg PO DAILY Fluticasone Propionate Nasal [Flonase] 2 spr NS HS PRN PRN Reason: Allergy Symptoms Omeprazole [PriLOSEC] 20 mg PO DAILY Trazodone HCl 50 mg PO HS Discontinued Ibuprofen [Ibu] 800 mg PO TID PRN PRN Reason: Pain Home Medications: Albuterol Sulfate [Proventil Inhaler] 2 puff IH Q4H PRN 09/10/18 [History] Benazepril HCl [Lotensin] 20 mg PO DAILY 09/10/18 [History] Melatonin [Melatin] 6 mg PO HS 09/10/18 [History] Topiramate [Topamax] 50 mg PO HS 09/10/18 [History] amLODIPine [Norvasc] 5 mg PO HS 09/10/18 [History] hydrOXYzine HCl [Hydroxyzine HCl] 25 mg PO BID PRN 09/10/18 [History] Aspirin 325 mg PO DAILY 01/06/19 [History] DULoxetine [Cymbalta] 30 mg PO DAILY 01/06/19 [History] Fluticasone Propionate Nasal [Flonase] 2 spr NS HS PRN 01/06/19 [History] Omeprazole [PriLOSEC] 20 mg PO DAILY 01/06/19 [History] Trazodone HCl 50 mg PO HS 01/06/19 [History] HYDROcodone/Acet 5/325 mg [[place] 5-325 mg] 1 tab PO Q6HR PRN 7 Days #28 tablet 01/10/19 [Rx] Allergies/Adverse Reactions: Allergy/AdvReac Type Severity Reaction Status Date / Time haloperidol [From Haldol] AdvReac Swelling Verified 09/10/18 11:52 of Lip/Tongue/Throat Date of admission: 01/05/19 16:38 [facility] care physician[facility] Consults: 01/05/19 18:13 Consult to Vascular Surgery [CONS] Stat Consulting Provider: Vascular Surgery Fang Reason for Consult: Right leg pain and swelling due to severe PAD Call Completed: Yes 01/10/19 07:57 Consult to Director Of [employer] [CONS] Routine Reason for SW Consult: [facility] to [facility] Discharging clinician: Juan Anaya - Constitutional Vitals: Temp Pulse Resp BP Pulse Ox 98.1 F 60 16 111/61 97 01/10/19 11:07 01/10/19 11:07 01/10/19 11:07 01/10/19 11:07 01/10/19 11:07 General appearance: Present: cooperative, A&O X 3 Exam: General: A & O 3, In no acute distress HENNT: PERRLA. Head atraumatic and makes supple CVS S1 and S2 regular, no murmur RS: Clear to air entry bilaterally, no wheeze, no crackles Abdomen: Soft and nontender. Bowel sounds normal 4 Extremities: No cyanosis, clubbing, and edema. Right sided swelling. Capillary refill normal. Feeble pulse on right side. Dressings placed in the right medial midthigh region. Per vascular surgery patientneeds dry dressing Neurology: Cranial II through XII normal. Motor strength 5/5 bilaterally. Sensation intact - Patient Status Disposition: Transfer Psychiatric Hosp Condition: Good Functional capacity at discharge: independent ambulation Overall status at discharge: patient is progressing back to baseline - Discharge Instructions Follow Up With: [facility] [Primary Care Provider] - Fernando Campbell MD [Partnered Physician] - (Follow-up in 2 weeks in vascular surgery clinic Web Requested 01/08/19) Additional Instructions: Remove surgical dressings on Thursday, January 08 Keep surgical sites dry for a total of 5 days following surgery Patient may ambulate as tolerated. Patient may use stairs as tolerated. No lifting greater than 10 pounds. No driving. No manual labor. - Diet and Activity Activity: increase activity as tolerated Diet: low salt diet
--- NOTE | 2019-01-10 11:26 | Physician Discharge Referral ---
ExtendedCare Referral Info Transfer To: [facility] Provider in Charge after Transfer: PCP - Diagnosis (1) Leukocytosis Priority: Secondary Status: Acute (2) Superficial femoral artery occlusion Priority: Primary Status: Acute (3) Mood disorder Priority: Secondary Status: Chronic (4) Anxiety Priority: Secondary Status: Chronic (5) Hypertension Priority: Secondary Status: Chronic (6) COPD (chronic obstructive pulmonary disease) Priority: Secondary Status: Chronic (7) Insomnia Status: Chronic Prognosis: Good Aware of Diagnosis: Patient Aware of Prognosis: Patient - Transfer Medications Prescriptions: HYDROcodone/Acet 5/325 mg [[place] 5-325 mg] 1 tab PO Q6HR PRN 7 Days #28 tablet PRN Reason: Moderate Pain Home Medications: Albuterol Sulfate [Proventil Inhaler] 2 puff IH Q4H PRN 09/10/18 [History] Benazepril HCl [Lotensin] 20 mg PO DAILY 09/10/18 [History] Melatonin [Melatin] 6 mg PO HS 09/10/18 [History] Topiramate [Topamax] 50 mg PO HS 09/10/18 [History] amLODIPine [Norvasc] 5 mg PO HS 09/10/18 [History] hydrOXYzine HCl [Hydroxyzine HCl] 25 mg PO BID PRN 09/10/18 [History] Aspirin 325 mg PO DAILY 01/06/19 [History] DULoxetine [Cymbalta] 30 mg PO DAILY 01/06/19 [History] Fluticasone Propionate Nasal [Flonase] 2 spr NS HS PRN 01/06/19 [History] Omeprazole [PriLOSEC] 20 mg PO DAILY 01/06/19 [History] Trazodone HCl 50 mg PO HS 01/06/19 [History] HYDROcodone/Acet 5/325 mg [[place] 5-325 mg] 1 tab PO Q6HR PRN 7 Days #28 tablet 01/10/19 [Rx] Allergies/Adverse Reactions: Allergy/AdvReac Type Severity Reaction Status Date / Time haloperidol [From Haldol] AdvReac Swelling Verified 09/10/18 11:52 of Lip/Tongue/Throat - Respiratory Orders Smoking Cessation: Smoking cessation has been advised. For more information, call the [facility] [employer] Quit Line at 4-146-AJPH-NOW. - Advance Directives Code Status: Full Code - Rehabiliation Orders Rehab Potential: Good Rehab Orders: ROM Exercises, Evaluation for Physical Therapy, Evaluation for Occupational Therapy - Diet Orders Cardiac CERTIFICATION: I certify that the transfer of the above named patient to an Extended Care Facility is necessary for the continuing treatment of the diagnosis listed. The above information is true and accurate reflection of patient's current condition. Confidential - Redisclosure prohibited without a patient's written consent.
--- NOTE | 2019-01-10 14:20 | Vascular/[facility] Progress Note ---
Date of Encounter: 01/10/19 Time of Encounter: 13:45 - Assessment and plan (1) PAD (peripheral artery disease) Current Visit: Yes Status: Chronic Patient is status post right femoral-popliteal bypass graft. Patient is doing well. He is symptomatically improved. From a vascular surgery perspective it would be appropriate for patient to be transferred back to the [facility] as early as tomorrow. We will ask the patient to come back to the vascular surgery clinic in 2 weeks. I have reviewed with the patient the postoperative care for the wounds. All questions were answered. (2) Hypertension Current Visit: Yes Status: Chronic Patient has history of hypertension Qualifiers: Hypertension type: essential hypertension Qualified Code(s): I10 - Essential (primary) hypertension (3) Mood disorder Current Visit: Yes Status: Chronic Patient has history of psychiatric history and was in the inpatient unit at the [facility]. - Subjective Interval history: Patient is postoperative day #3 from a right femoral to [id number] popliteal artery bypass graft with PTFE. The patient had an uneventful weekend. He is feeling well. He has no specific complaints except for incisional pain. Vital Signs, Last 4 Hours Temp Pulse Resp BP Pulse Ox 01/10/19 11:07 98.1 F 60 16 111/61 97 - Physical Examination General: Present: Conversant, No Apparent Distress HEENT: Present: Atraumatic Vascular: Present: Color/Temperature (Clean and dry feet are warm), Surgical incisions Results 01/10/19 05:08 01/08/19 07:02 Lab Results, Last 24 hours 01/09/19 01/10/19 14:37 05:08 WBC 13.3 H 11.8 H Hgb 9.9 L 10.1 L Hct 29.5 L 30.7 L Plt Count 217 241 Consult Discharge Plan - Plan Additional Instructions: Remove surgical dressings on Thursday, January 08 Keep surgical sites dry for a total of 5 days following surgery Patient may ambulate as tolerated. Patient may use stairs as tolerated. No lifting greater than 10 pounds. No driving. No manual labor. [facility]errals: [facility] [Primary Care Provider] - Fernando Campbell MD [Partnered Physician] - (Follow-up in 2 weeks in vascular surgery clinic Web Requested 01/08/19) Prescriptions: HYDROcodone/Acet 5/325 mg [[place] 5-325 mg] 1 tab PO Q6HR PRN 7 Days #28 tablet PRN Reason: Moderate Pain
== END 2019-01-10 15:20 | DRG 253 ==
LOC: SUATTDRO 16:38 → 2ANU 16:38
PROVIDERS: ADMIT Internal Medicine; ATTEND Family Medicine

== ENCOUNTER 2019-01-16 19:00 | Observation (INO) ==
--- NOTE | 2019-01-16 19:10 | Emergency Department Note ---
Disposition Clinical Impression: Chest pain Qualifiers: Chest pain type: unspecified Qualified Code(s): R07.9 - Chest pain, unspecified Disposition: Admitted As Inpatient Condition: Fair Time of Disposition: 21:43 General Adult HPI - General Stated complaint: Chest pain Time Seen by Provider: 01/16/19 19:09 Source: patient, EMS Mode of arrival: EMS Limitations: no limitations Nursing Notes Reviewed: Yes Vital Signs Reviewed: Yes - History of Present Illness HPI Narrative: 68-year-old -[place] male past medical history of 2 prior myocardial infarctions, femoral bypass surgery performed here by [facility] vascular surgery on January 08 present for one hour history of midsternal chest pain made worse by the pain in his right groin where he has had be bypass procedure done. Patient does have a shallow ulceration noted to the right groin with firm vessels noted in the right groin. Which are tender to palpation. Patient also complaining of 8 out of 10 midsternal chest pain without radiation. He has no other concerns or complaints at this time. Upon my initial evaluation, my general impression is that the patient is in mild/moderate discomfort due to his symptoms. He is otherwise awake, alert, oriented, engaged to conversation and answering questions appropriately. There are no overt lateralizing signs, the patient is in no acute distress; their skin appears to be normal in color, they are not pale, not cyanotic, and not diap horetic, they are sitting up in hospital bed interacting appropriately with environment. Onset (ago): hour(s) (One-hour prior to arrival) Location: chest, other (Right groin) Radiation: non-radiation Pain Severity: severe Pain Scale: 8 Quality: stabbing, sharp Associated symptoms: Reports: chest pain Treatments Prior to Arrival: none - Related Data Home Medications Medication Instructions Recorded Confirmed Albuterol Sulfate [Proventil 2 puff IH Q4H PRN 09/10/18 01/16/19 Inhaler] Benazepril HCl [Lotensin] 20 mg PO DAILY 09/10/18 01/16/19 Melatonin [Melatin] 6 mg PO HS 09/10/18 01/16/19 Topiramate [Topamax] 50 mg PO HS 09/10/18 01/16/19 amLODIPine [Norvasc] 5 mg PO HS 09/10/18 01/16/19 hydrOXYzine HCl [Hydroxyzine HCl] 25 mg PO BID PRN 09/10/18 01/16/19 Aspirin 325 mg PO DAILY 01/06/19 01/16/19 DULoxetine [Cymbalta] 30 mg PO DAILY 01/06/19 01/16/19 Fluticasone Propionate Nasal 2 spr NS HS PRN 01/06/19 01/16/19 [Flonase] Omeprazole [PriLOSEC] 20 mg PO DAILY 01/06/19 01/16/19 Trazodone HCl 50 mg PO HS 01/06/19 01/16/19 Previous Rx's Medication Instructions Recorded HYDROcodone/Acet 5/325 mg [[place] 1 tab PO Q6HR PRN 7 Days #28 tablet 01/10/19 5-325 mg] Allergies Allergy/AdvReac Type Severity Reaction Status Date / Time haloperidol [From Haldol] AdvReac Swelling Verified 09/10/18 11:52 of Lip/Tongue/Throat Review of Systems: *See History of Present Illness for more detail Constitutional: Denies: fever, chills Cardiovascular: Admits: chest pain Respiratory: Denies: dyspnea, cough, hemoptysis Gastrointestinal: Denies: abdominal pain, nausea, vomiting, diarrhea, constipation, hematemesis, melena, hematochezia Genitourinary: Admits to right-sided groin pain. Denies: hematuria Musculoskeletal: Denies: back pain, neck pain Neurological: Denies: headache, weakness, lightheadedness/dizziness, numbness, paresthesias, difficulty with ambulation. Endocrine: Denies: fatigue All systems ED: reviewed and negative except as stated. Review of Systems: As Per HPI Past Medical History - Past Medical History Medical history: Reports: GERD, hypertension, myocardial infarction, other Surgical history: Reports: no surgical history Psychiatric history: Reports: anxiety, depression, PTSD - Social History Smoking Status: Current every day smoker Smokeless Tobacco Status: No Alcohol use: Reports: none Drug use: Reports: none Physical Exam Constitutional: Patient mild to moderate distress due to symptoms., [id number], engaged to conversation, speech is fluid, answers questions appropriately Neuro: GCS 15, no overt focal neurological deficits Head: Atraumatic, normocephalic Eyes: Pupils equal, round and reactive to light, no scleral icterus, no conjunctival injection Neck: Trachea midline without deviation. Anterior neck is supple without swell ing. *Chest: Symmetric chest wall rise *Heart: Cardiac rhythm and rate are regular with S1 and S2 , no S3 or S4 appreciated, no murmurs, gallops, rubs, or clicks. *Lungs: Lungs are clear to auscultation bilaterally, without accessory muscle use or prolonged expiratory phase. No wheezes, rhonchi or stridor appreciated. Abdomen: Abdomen is flat, soft to palpation, normal bowel sounds. No abdominal bruit auscultated. Non-distended, non-rigid, no organomegaly, no ascites appreciated. No pulsatile mass, no tenderness or guarding to palpation in all four quadrants, no rebound Groin: Firm vascular appearing mass in the right groin, shallow ulceration noted. Extremities: Normal capillary refill without evidence of pedal edema, joint swelling or erythema. Pulses/motor intact in all 4 extremities. Psychiatric exam: Patient displays a normal affect and mood for the environment. No overt signs of hallucination. Integumentary: warm, dry, intact, normal color. No rash, cyanosis, diaphoresis, erythema, or pallor - General Limitations: no limitations General appearance: alert, in distress Course Course Narrative: EKG/old EKG, chest x-ray, troponin, Patient with aspirin by EMS we will give fentanyl for the management of his pain. Ultrasound right lower extremity. Vital Signs Temperature 98.1 F 01/16/19 19:06 Pulse Rate 91 01/16/19 19:06 Respiratory Rate 20 01/16/19 19:06 Blood Pressure 170/94 01/16/19 19:06 O2 Sat by Pulse Oximetry 100 01/16/19 19:06 Temperature 98.3 F 01/16/19 22:00 Pulse Rate 63 01/16/19 21:23 Respiratory Rate 20 01/16/19 22:00 Blood Pressure 173/78 01/16/19 22:00 O2 Sat by Pulse Oximetry 100 01/16/19 21:23 Oxygen Delivery Oxygen Delivery Nasal Cannula Medical Decision Making - MDM Narrative Medical decision making narrative: The patients EKG, imaging, and laboratory results show no acute pathology . Evaluation results were discussed with the patient and their family member(s) at bedside. Patient was given time to ask questions and state concerns. The patient states that they have had significant relief of their symptoms with our management here in the ED. The patient will be admitted to the hospitalist medicine service for further evaluation and management of chest pain with ACS rule out . The patient verbalizes their understanding and agreement with this plan and is hemodynamically stable at the time of admission. - Lab Data Lab results reviewed: Yes I reviewed the patient's lab results. Result diagrams: 01/16/19 19:27 01/16/19 19:27 Lab Results 01/16/19 01/16/19 Range/Units 19:27 19:27 WBC 10.5 (4.3-11.1) K/mcL RBC 4.01 L (4.19-5.50) M/mcL Hgb 10.4 L (12.9-16.9) g/dL Hct 32.2 L (37.5-50.1) % MCV 80.3 L (83.0-100.0) fL MCH 25.9 L (28.0-33.3) pg MCHC 32.3 (31.6-35.5) g/dL RDW 14.8 H (11.5-14.5) % Plt Count 402 H D (140-400) K/mcL MPV 8.6 L (9.4-12.4) fL Immature Gran % 1.2 (0-4) % Seg Neutrophils % 65.8 % Lymphocytes % 19.7 % Monocytes % 10.0 % Eosinophils % 2.7 % Basophils % 0.6 % Neutrophils # 6.9 (1.6-8.9) K/mcL Lymphocytes # 2.1 (0.6-4.6) K/mcL Monocytes # 1.1 (0.0-1.3) K/mcL Eosinophils # 0.3 (0.0-0.6) K/mcL Basophils # 0.1 (0.0-0.2) K/mcL Sodium 137 (136-145) mEq/L Potassium 3.5 (3.5-5.1) mEq/L Chloride 104 (98-107) mEq/L Carbon Dioxide 24 (23-29) mEq/L BUN 20 (8-23) mg/dL Creatinine 0.87 (0.70-1.30) mg/dL Est GFR ( Amer) > 60 (> 60) Est GFR (Non-Af Amer) > 60 (> 60) BUN/Creatinine Ratio 23 (6-26) Glucose 138 H (70-105) mg/dL Calculated Osmolality 289 (280-300) Calcium 9.5 (8.6-10.3) mg/dL Troponin I < 0.03 (< 0.04) ng/mL - Radiology Data Radiology results reviewed: Yes I reviewed the patient's radiology results. Chest X-Ray 01/16/19 19:27 IMPRESSION: No acute pulmonary disease. Small hiatal hernia evident. Calcific atherosclerotic disease aorta. D/ / Christopher Najera / Christopher Najera Interpreting Provider: Christopher Najera - EKG Data EKG #1 EKG attestation: Yes I reviewed and interpreted this EKG. EKG results narrative: The patients EKG shows a sinus rhythm at a computer analyzed rate of 79 beats per minute, DE interval of 149 milliseconds, a QRS duration of 87 milliseconds, a QT/QTc interval of 386 / 440 milliseconds respectively. There are no sign ificant ST segment elevations, depressions, pathologic Q waves, abnormal T-wave inversions, nor any other signs of acute ischemic change. At this time there is no prior EKG available for comparison. Attestation Statement - Attestation Attestation: Patient was seen with resident physician. I reviewed the history, physical, assessment and plan, and agree with the findings. I also personally evaluated this patient and had [id number] time with this patient. 68-year-old male presents emergency Department chief complaint of groin pain and chest pain. Patient had a femoral bypass surgery to the right side done on the of this month. Patient states that he noticed he had increased swelling and pain in the right groin and inguinal area. He said simultaneously in about an hour prior to arrival he developed chest pain. Concerning was the patient has a history of myocardial infarction 2. He denies fevers or chills. No shortness of breath. He is ambulatory. Denies other complaints. Review systems as above remainder negative. Physical exam vital signs stable. ENT is unremarkable. Heart regular rate. Chest wall stable. Abdomen is soft and nontender. Extremities patient has had intact pulses he has some swelling over the incision site in the right groin. There is some swelling that can be noted in the area. It feels very firm. Neurologically alert and oriented without deficits P skin no rashes P it psych normal. ED course. Ultrasound will be obtained to rule out Locations from surgical procedure. Additionally cardiopulmonary workup will be done. Chest x-ray revealed no acute abnormalities. Labs are unremarkable. EKG showed no acute ischemic changes. Because the patient's recent surgery and cardiac history he will be admitted to the hospitalist service for additional evaluation and treatment. I agree with resident physician assessment and plan. ED procedures.I reviewed the patient's EKG as well as the resident physician interpretation and I agree with the findings.
[2019-01-16] MEDS ORDERED: *HR* FentaNYL (PF) 100 MCG/2 ML VIAL IVP ONE (19:26)
[2019-01-16 19:55] LABS: Basophils # 0.1 K/mcL (0.0-0.2); Basophils % 0.6 %; Eosinophils # 0.3 K/mcL (0.0-0.6); Eosinophils % 2.7 %; Hematocrit 32.2 % (37.5-50.1); Hemoglobin 10.4 g/dL (12.9-16.9); Immature Granulocytes % 1.2 % (0-4); Lymphocytes # 2.1 K/mcL (0.6-4.6); Lymphocytes % 19.7 %; Mean Corpuscular HGB Conc 32.3 g/dL (31.6-35.5); Mean Corpuscular Hemoglobin 25.9 pg (28.0-33.3); Mean Corpuscular Volume 80.3 fL (83.0-100.0); Mean Platelet Volume 8.6 fL (9.4-12.4); Monocytes # 1.1 K/mcL (0.0-1.3); Neutrophils # 6.9 K/mcL (1.6-8.9); Platelet Count 402 K/mcL (140-400); Red Blood Count 4.01 M/mcL (4.19-5.50); Red Cell Distribution Width 14.8 % (11.5-14.5); Segmented Neutrophils % 65.8 %; White Blood Count 10.5 K/mcL (4.3-11.1)
[2019-01-16 20:18] LABS: BUN/Creatinine Ratio 23 (6-26); Blood Urea Nitrogen 20 mg/dL (8-23); Calcium 9.5 mg/dL (8.6-10.3); Carbon Dioxide 24 mEq/L (23-29); Chloride 104 mEq/L (98-107); Glucose 138 mg/dL (70-105); Osmolality,Calculated 289 (280-300); Potassium 3.5 mEq/L (3.5-5.1); Sodium 137 mEq/L (136-145); Troponin I < 0.03 ng/mL (< 0.04); eGFR For African Americans > 60 (> 60); eGFR For Non-African Americans > 60 (> 60)
[2019-01-17] MEDS ORDERED: Morphine Sulfate 2 MG/ML SYRINGE IVP PRN (02:23)
[2019-01-17] MEDS ORDERED: Naloxone 0.4 MG/ML INJ IVP PRN (02:23)
[2019-01-17] MEDS ORDERED: Nitroglycerin 0.4 MG TAB.SUBL SL PRN (02:23)
[2019-01-17] MEDS ORDERED: Acetaminophen 325 MG TABLET PO PRN (02:23)
[2019-01-17] MEDS ORDERED: hydrOXYzine pamoate 25 MG CAPSULE PO PRN (02:27)
[2019-01-17] MEDS ORDERED: Fluticasone Propionate Nasal 50 MCG/SPRAY BOTTLE NS PRN (02:27)
[2019-01-17] MEDS: 0.9 % Sodium Chloride w KCl 20 MEQ/1,000 ML MLS IVC SCH ×2 (02:49→16:31)
[2019-01-17] MEDS: *HR* HYDROcodone/Acet 5/325 mg TABLET PO PRN (02:49)
[2019-01-17 03:22] LABS: Basophils # 0.1 K/mcL (0.0-0.2); Basophils % 0.7 %; Eosinophils # 0.3 K/mcL (0.0-0.6); Eosinophils % 2.8 %; Hematocrit 30.7 % (37.5-50.1); Hemoglobin 10.2 g/dL (12.9-16.9); Immature Granulocytes % 0.9 % (0-4); Lymphocytes # 2.7 K/mcL (0.6-4.6); Mean Corpuscular HGB Conc 33.2 g/dL (31.6-35.5); Mean Corpuscular Hemoglobin 26.5 pg (28.0-33.3); Mean Corpuscular Volume 79.7 fL (83.0-100.0); Mean Platelet Volume 8.2 fL (9.4-12.4); Monocytes # 0.8 K/mcL (0.0-1.3); Monocytes % 8.5 %; Neutrophils # 5.3 K/mcL (1.6-8.9); Platelet Count 333 K/mcL (140-400); Red Blood Count 3.85 M/mcL (4.19-5.50); Red Cell Distribution Width 14.9 % (11.5-14.5); Segmented Neutrophils % 58.1 %; White Blood Count 9.2 K/mcL (4.3-11.1)
[2019-01-17 03:31] LABS: Prothrombin Time 10.9 Seconds (9.4-12.1)
[2019-01-17 03:33] LABS: Activated Partial Thrombo Time 35.2 Seconds (26.0-36.0)
[2019-01-17 03:38] LABS: Alanine Aminotransferase 11 Units/L (7-52); Albumin/Globulin Ratio 1.3 (1.1-2.2); Alkaline Phosphatase 59 Units/L (34-104); Aspartate Amino Transferase 9 Units/L (13-39); BUN/Creatinine Ratio 18 (6-26); Bilirubin,Total 0.4 mg/dL (0.3-1.0); Blood Urea Nitrogen 17 mg/dL (8-23); Calcium 9.2 mg/dL (8.6-10.3); Carbon Dioxide 22 mEq/L (23-29); Chloride 107 mEq/L (98-107); Chol/HDL Ratio 4.5 (0-4.9); Cholesterol 165 mg/dL (< 200); Globulin 3.2 g/dL (2.4-3.5); Glucose 149 mg/dL (70-105); HDL Cholesterol 37 mg/dL (40-59); LDL Cholesterol,Calculated 114 mg/dL (0-99); Magnesium 2.1 mg/dL (1.6-2.6); Osmolality,Calculated 290 (280-300); Potassium 3.4 mEq/L (3.5-5.1); Sodium 138 mEq/L (136-145); Total Protein 7.2 g/dL (6.4-8.9); Triglycerides 70 mg/dL (< 150); eGFR For African Americans > 60 (> 60); eGFR For Non-African Americans > 60 (> 60)
--- NOTE | 2019-01-17 05:50 | Internal Med History&Physical ---
Date of Encounter: 01/17/19 Time of Encounter: 01:45 Internal Medicine - H&P: HPI Chief complaint: chest pain; pain in right groin Admitted From: Emergency Dept Plans for Post Hospital Care: Home History of present illness: Mr. Domingo is a 68 year old male who presents with complaints of substernal chest pain and pressure associated shortness of breath and mild diaphoresis. He also had some pain in his right groin which has flared up since his surgery less than 2 weeks ago for femoral bypass vascular procedure. He therefore came to ER for evaluation and was admitted to hospitalist service. Upon my assessment of the patient, patient states the chest pain is minimal now and roughly 1 out of 10. He states the pain is similar to his previous anginal pain and NC. He denies any fevers, cough, congestion, or dyspnea at rest. Regarding his groin pain, he had recent vascular surgery, and he developed pain and had mild swelling in his right groin. He denies any warmth, wound dehiscence, purulent drainage, fevers, chills, or night sweats. Past Med Surg Social Fam HX - Past Medical History Attestation: Yes The following information was validated with the patient. Source: patient, old records reviewed Medical history: GERD, hypertension, myocardial infarction Psychiatric history: anxiety, depression, PTSD - Past Surgical History Surgical History: orthopedic, other, vascular surgery Additional surgical history: tendons right arm. Bypass right leg - Social History Smoking Status: Current every day smoker Smokeless Tobacco Status: No Alcohol use: none Drug use: none Current living situation: Home Activity Level: Independent ambulation Recent Out of Country Travel Within the Last 8 Weeks: No - Family History Mother Hx Family Cardiac Disorders: Yes (HTN) Father Hx Family Cardiac Disorders: Yes (HTN) Internal Medicine - H&P: Meds Albuterol Sulfate [Proventil Inhaler] 2 puff IH Q4H PRN 09/10/18 [History] Benazepril HCl [Lotensin] 20 mg PO DAILY 09/10/18 [History] Melatonin [Melatin] 6 mg PO HS 09/10/18 [History] Topiramate [Topamax] 50 mg PO HS 09/10/18 [History] amLODIPine [Norvasc] 5 mg PO HS 09/10/18 [History] hydrOXYzine HCl [Hydroxyzine HCl] 25 mg PO BID PRN 09/10/18 [History] Aspirin 325 mg PO DAILY 01/06/19 [History] DULoxetine [Cymbalta] 30 mg PO DAILY 01/06/19 [History] Fluticasone Propionate Nasal [Flonase] 2 spr NS HS PRN 01/06/19 [History] Omeprazole [PriLOSEC] 20 mg PO DAILY 01/06/19 [History] Trazodone HCl 50 mg PO HS 01/06/19 [History] HYDROcodone/Acet 5/325 mg [[place] 5-325 mg] 1 tab PO Q6HR PRN 7 Days #28 tablet 01/10/19 [Rx] Allergy/AdvReac Type Severity Reaction Status Date / Time haloperidol [From Haldol] AdvReac Swelling Verified 09/10/18 11:52 of Lip/Tongue/Throat - Constitutional Constitutional: no chills, no fever(s), no night sweats - EENT Eyes: no blurry vision, no change in vision Ears: no ear pain, no tinnitus Nose, mouth and throat: no nasal congestion, no sinus pressure, no sore throat - Cardiovascular Cardiovascular ROS IM: chest pain, dyspnea on exertion, no diaphoresis, no dyspnea, no orthopnea, no paroxysmal nocturnal dyspnea - Respiratory Respiratory: no cough, no hemoptysis, no chest congestion, no excessive phlegm production, no change in phlegm color - Gastrointestinal Gastrointestinal: no abdominal pain, no diarrhea, no hematemesis, no hematochezia, no melena, no nausea, no vomiting - Genitourinary Genitourinary ROS male: no difficulty urinating, no dysuria, no flank pain - Musculoskeletal Musculoskeletal ROS IM: no arthralgias, no back pain - Integumentary Integumentary IM: no rash, no jaundice - Neurological Neurological ROS: no dizziness, no focal weakness, no frequent falls, no headache(s) - Psychiatric Psychiatric: no anxiety, no depression - Hematologic/Lymphatic Hematologic/Lymphatic: no lymphadenopathy - Allergic/Immunologic Allergic/Immunologic: no GI upset with certain foods - Constitutional Vitals: Temp Pulse Resp BP Pulse Ox 97.9 F 67 16 122/70 98 01/17/19 03:59 01/17/19 03:59 01/17/19 03:59 01/17/19 03:59 01/17/19 03:59 General appearance: Present: cooperative, A&O X 3, no acute distress, answers questions appropriately Exam: see below - Head Head exam: Present: atraumatic, normal inspection - Eye Eye exam: Present: EOMI, PERRL. Absent: scleral icterus Pupils: Present: normal accommodation - ENT ENT exam: Present: mucous membranes dry, normal exam, normal oropharynx - Neck Neck exam general surgery: Present: full ROM, supple, trachea midline. Absent: tenderness, nuchal rigidity, thyromegaly - Respiratory Respiratory exam: Present: CTAB. Absent: chest wall tenderness, rales, rhonchi, wheezes - Cardiovascular Cardiovascular exam: Present: RRR, +S1, +S2. Absent: diastolic murmur - GI/Abdominal GI/Abdominal exam: Present: normal bowel sounds, soft. Absent: guarding, hepatomegaly, mass, rebound, splenomegaly, tenderness - Extremities Exam Extremities exam: Present: full ROM, normal capillary refill, tenderness (right groin surgical site -- no drainage; no appreciable redness; mild swelling nad moderate pain), warm, radial pulses palpable and symmetrical. Absent: calf tenderness, pedal edema - Back Exam Back exam: Absent: CVA tenderness (L), CVA tenderness (R) - Neurological Exam Neurological exam: Present: alert, oriented X3, strengths equal and symetr thro ughout - Psychiatric Psychiatric exam: Present: normal affect, normal mood - Skin Skin exam: Present: dry, intact, warm Internal Med - H&P Results - Labs CBC & Chem 7: 01/17/19 03:01 01/17/19 03:01 Labs: Short CBC 01/16/19 01/17/19 Range/Units 19:27 03:01 WBC 10.5 9.2 (4.3-11.1) K/mcL Hgb 10.4 L 10.2 L (12.9-16.9) g/dL Hct 32.2 L 30.7 L (37.5-50.1) % Plt Count 402 H D 333 (140-400) K/mcL Neutrophils # 6.9 5.3 (1.6-8.9) K/mcL BMP 01/16/19 01/17/19 19:27 03:01 Sodium 137 138 Potassium 3.5 3.4 L Chloride 104 107 Carbon Dioxide 24 22 L BUN 20 17 Creatinine 0.87 0.94 Glucose 138 H 149 H Calcium 9.5 9.2 Cardiac Enzymes 01/16/19 01/17/19 Range/Units 19:27 03:01 Troponin I < 0.03 < 0.03 (< 0.04) ng/mL Liver Function 01/17/19 Range/Units 03:01 Total Bilirubin 0.4 (0.3-1.0) mg/dL AST 9 L (13-39) Units/L ALT 11 (7-52) Units/L Alkaline Phosphatase 59 (34-104) Units/L Albumin 4.0 (3.5-5.7) g/dL - EKG Data -: EKG Interpreted by Myself - EKG Data Prior EKG available for review: no EKG comments: 01/17/19 05:56 NSR; no acute ST-T changes - Impressions ITS Impressions Chest X-Ray 01/16/19 19:27 IMPRESSION: No acute pulmonary disease. Small hiatal hernia evident. Calcific atherosclerotic disease aorta. D/ / Christopher Najera / Christopher Najera Interpreting Provider: Christopher Najera - Diagnostic Studies Chest x-ray Status: image reviewed by me (negative) - Assessment and Plan (1) Chest pain Current Visit: Yes Status: Acute Assessment and plan: 1. I reviewed his recent stress test (negative) and ECHO. 2. Will trend troponin levels, EKG's, and monitor on telemetry. 3. Order SL NTG and IV Morphine PRN chest pain. 4. Consult cardiology as he may need LHC. Qualifiers: Chest pain type: unspecified Qualified Code(s): R07.9 - Chest pain, unspecified (2) Post-op pain Current Visit: Yes Status: Acute Assessment and plan: 1. Consult Vascular surgery to assess wound. 2. He may need image of surgical site. 3. Pain control. (3) DVT prophylaxis Current Visit: Yes Status: Acute Assessment and plan: 1. Heparin SQ.
[2019-01-17] MEDS: *HR* Heparin 5,000 UNIT/ML VIAL SQ SCH ×2 (05:52→16:19)
[2019-01-17] MEDS: Aspirin 325 MG TABLET PO SCH (08:51)
--- NOTE | 2019-01-17 11:12 | Cardiology Consult Note ---
<Luis Eduardo Lagunas - Last Filed: 01/17/19 12:07> Date of Encounter: 01/17/19 Time of Encounter: 10:00 Assessment and Plan (1) Chest pain Current Visit: Yes Status: Acute Atypical chest pain in the setting of recent vascular surgery. No ischemic changes on EKG; Trops negative x 3; remains asymptomatic at this time; previous ECHO 01/05 EF preserved 55-60%. Stress test in August "small sized mild intensity reversible apical septal perfusion defect possibly due to small area ischemia, SDS = 1." Questionable abnormal stress test results. Extensively discussed with the patient and Dr. Nunes. Patient prefers to manage medically and f/u as an ou tpatient. Will consider LHC as outpatient if clinically warranted at that time. Cardio will sign off. F/u arranged, all questions answered. Qualifiers: Chest pain type: unspecified Qualified Code(s): R07.9 - Chest pain, unspecified Discussion w patient/family: The assessment and plan as outlined above was discussed with the patient and/or family members who expressed understanding and agreement. All questions were answered. Thank you for involving us in the care of your patient. Please call with any questions. History of Present Illness Consult date: 01/17/19 Consult reason: chest pain Chief complaint: chest pain History of present illness: Mr. Domnigo is a 68 year-old male with PMH of GERD, HTN, apparent GA (denies previous cath, stenting or bypass), recent femoral bypass vascular procedure completed at [facility] this month. Presented with complaints right groin pain radiating to substernal chest 02/01 with mild SOB, mild diaphoresis, mild dizziness with exertion. Chest pain lasted 30 seconds to 1 minute. Admits right groin remains tender to touch. Denies palpitations, fevers, wound drainage right groin, chills, SOB at rest. Currently chest pain free. Patient reports intermittent chest pain for years. Denies ever having LHC. Denies active bleeding. Past Med Surg Social Fam HX - Past Medical History Attestation: Yes The following information was validated with the patient. Source: patient, old records reviewed Medical history: GERD, hypertension, myocardial infarction Psychiatric history: anxiety, depression, PTSD - Past Surgical History Surgical History: orthopedic, other, vascular surgery Additional surgical history: tendons right arm. Bypass right leg - Social History Smoking Status: Current every day smoker Smokeless Tobacco Status: No Alcohol use: none Drug use: none - Family History Mother Hx Family Cardiac Disorders: Yes (HTN) Father Hx Family Cardiac Disorders: Yes (HTN) Medications and Allergies Albuterol Sulfate [Proventil Inhaler] 2 puff IH Q4H PRN 09/10/18 [History] Benazepril HCl [Lotensin] 20 mg PO DAILY 09/10/18 [History] Melatonin [Melatin] 6 mg PO HS 09/10/18 [History] Topiramate [Topamax] 50 mg PO HS 09/10/18 [History] amLODIPine [Norvasc] 5 mg PO HS 09/10/18 [History] hydrOXYzine HCl [Hydroxyzine HCl] 25 mg PO BID PRN 09/10/18 [History] Aspirin 325 mg PO DAILY 01/06/19 [History] DULoxetine [Cymbalta] 30 mg PO DAILY 01/06/19 [History] Fluticasone Propionate Nasal [Flonase] 2 spr NS HS PRN 01/06/19 [History] Omeprazole [PriLOSEC] 20 mg PO DAILY 01/06/19 [History] Trazodone HCl 50 mg PO HS 01/06/19 [History] HYDROcodone/Acet 5/325 mg [[place] 5-325 mg] 1 tab PO Q6HR PRN 7 Days #28 tablet 01/10/19 [Rx] Allergy/AdvReac Type Severity Reaction Status Date / Time haloperidol [From Haldol] AdvReac Swelling Verified 09/10/18 11:52 of Lip/Tongue/Throat All Systems Review: The remainder of the systems were reviewed and are negative - Constitutional Constitutional: no frequent falls - Cardiovascular Cardiovascular: as per HPI Physical Examination Vital Signs, Last 4 Hours Temp Pulse Resp BP Pulse Ox 01/17/19 07:05 98.0 F 53 18 148/82 99 General: Conversant, No Apparent Distress HEENT: Atraumatic, Normocephaly, Mucus Membranes Moist Neck: No JVD, Normal carotid pulses Cardiac: Reg Rate and Rhythm, Normal S1 and S2, No Murmur Lungs: Normal Breath Sounds, No Wheeze, Rales, Rhonchi Neuro: Alert and responsive, No focal deficits noted Abdomen: Soft, Non-Tender Extremities: No Clubbing, No Cyanosis, No Edema, Normal Pulses Results 01/17/19 03:01 01/17/19 03:01 Lab Results Laboratory Tests 01/17/19 01/17/19 03:01 03:01 Hgb 10.2 L Hct 30.7 L Creatinine 0.94 Est GFR ( Amer) > 60 Laboratory Tests 01/16/19 01/17/19 01/17/19 19:27 03:01 08:42 Troponin I < 0.03 < 0.03 < 0.03 Impressions Chest X-Ray 01/16/19 19:27 IMPRESSION: No acute pulmonary disease. Small hiatal hernia evident. Calcific atherosclerotic disease aorta. D/ / Christopher Najera / Christopher Najera Interpreting Provider: Christopher Najera Active Medications Acetaminophen (Tylenol) 650 mg PO Q6HR PRN PRN Reason: Mild Pain/Fever Stop: 07/19/19 02:24 Hydrocodone Bitart/Acetaminophen ([place] 5-325 Mg) 1 tab PO Q6HR PRN PRN Reason: Moderate Pain Stop: 07/19/19 02:28 Last Admin: 01/17/19 02:49 Dose: 1 tab Documented by: Albuterol Sulfate (Proventil Inhaler) 2 puff IH Q4H PRN PRN Reason: Shortness Of Breath Stop: 07/19/19 02:28 Amlodipine Besylate (Norvasc) 5 mg PO HS SUSAN; Protocol Stop: 07/19/19 21:01 Aspirin (Aspirin) 325 mg PO DAILY [facility] Stop: 07/19/19 09:01 Last Admin: 01/17/19 08:51 Dose: 325 mg Documented by: Duloxetine HCl (Cymbalta) 30 mg PO DAILY [facility] Stop: 07/19/19 09:01 Last Admin: 01/17/19 08:51 Dose: 30 mg Documented by: Fluticasone Propionate (Flonase) 100 mcg NS HS PRN; Protocol PRN Reason: Allergy Symptoms Stop: 07/19/19 02:28 Heparin Sodium (Porcine) (Heparin) 5,000 unit SQ Q12HCO [facility]; Protocol Stop: 07/19/19 06:01 Last Admin: 01/17/19 05:52 Dose: 5,000 unit Documented by: Hydroxyzine Pamoate (Vistaril) 25 mg PO BID PRN PRN Reason: Anxiety Potassium Chloride/Sodium Chloride (Kcl 20 Meq In 0.9% Sodium Chloride) 20 meq in 1,000 mls @ 100 mls/hr IVC .Q10H [facility] Stop: 01/17/19 22:29 Last Admin: 01/17/19 02:49 Dose: 100 mls/hr Documented by: Melatonin (Melatonin) 6 mg PO [facility] Stop: 07/19/19 21:01 Morphine Sulfate (Morphine) 2 mg IVP Q4HR PRN; Protocol PRN Reason: Chest Pain Stop: 07/19/19 02:24 Naloxone HCl (Narcan) 0.4 mg IVP Q2MPRN PRN PRN Reason: SEE COMMENTS Stop: 07/19/19 02:24 Nitroglycerin (Nitroglycerin) 0.4 mg SL Q5MPRN PRN PRN Reason: Chest Pain Stop: 07/19/19 02:24 Omeprazole (Prilosec) 20 mg PO 0630 [facility]; Protocol Stop: 07/19/19 06:31 Last Admin: 01/17/19 06:06 Dose: Not Given Documented by: Topiramate (Topamax) 50 mg PO [facility] Stop: 07/19/19 21:01 - Imaging and Cardiology Chest Xray: pending, report reviewed Echo: report reviewed Consult Discharge Plan - Plan Referrals: [facility],PC[facility] [Primary Care Provider] - HAS-BLED Score - Score Elderly: Age>65 years Medication usage predisposing to bleeding: Antiplatelet agents, NSAIDs, Anticoagulants Score: 2 <Estelle Nunes - Last Filed: 01/17/19 13:25> Date of Encounter: 01/17/19 - Attending Attestation I examined this patient and my medical decision-making was reviewed with the MIMEOGRAPHER. I agree with the documented findings, disposition and treatment plan as described. Mr. Domingo presents with atypical chest discomfort in setting of recent vascular surgery. States that he stood up from a seated position, felt sudden right groin pain at surgical site that radiated to the chest associated with nausea. Serial troponins negative. No acute ECG findings. No recurrent chest discomfort. Recent Echo 01/05 demonstrates preserved LVEF. Stress testing 08/2018 demonstrated normal gated EF with a possible small area of mild distal ischemia. With the recent stress test in mind, I recommended to the patient that if he has recurrent chest pain during hospitalization, we consider LHC. Otherwise, there is no compelling evidence that patient's presentation represents ACS. Vascular surgery to evaluate right groin tenderness. Recommend outpatient Cardiology follow up. Will sign off at this time. Please call with questions. Assessment and Plan Discussion w patient/family: The assessment and plan as outlined above was discussed with the patient and/or family members who expressed understanding and agreement. All questions were answered. Thank you for involving us in the care of your patient. Please call with any questions. History of Present Illness History of present illness: Mr. Domingo is a 68 year old male All Systems Review: The remainder of the systems were reviewed and are negative Physical Examination Vital Signs, Last 4 Hours Temp Pulse Resp BP Pulse Ox 01/17/19 11:51 98.4 F 56 18 168/84 99 Results 01/17/19 03:01 01/17/19 03:01 Lab Results 01/16/19 01/16/19 01/17/19 19:27 19:27 03:01 WBC 10.5 Hgb 10.4 L Hct 32.2 L Plt Count 402 H D INR APTT Sodium 137 Potassium 3.5 Chloride 104 Carbon Dioxide 24 BUN 20 Creatinine 0.87 Glucose 138 H Calcium 9.5 Magnesium Total Bilirubin AST ALT Alkaline Phosphatase Troponin I < 0.03 < 0.03 01/17/19 01/17/19 01/17/19 03:01 03:01 03:01 WBC 9.2 Hgb 10.2 L Hct 30.7 L Plt Count 333 INR 1.0 APTT 35.2 Sodium 138 Potassium 3.4 L Chloride 107 Carbon Dioxide 22 L BUN 17 Creatinine 0.94 Glucose 149 H Calcium 9.2 Magnesium 2.1 Total Bilirubin 0.4 AST 9 L ALT 11 Alkaline Phosphatase 59 Troponin I 01/17/19 08:42 WBC Hgb Hct Plt Count INR APTT Sodium Potassium Chloride Carbon Dioxide BUN Creatinine Glucose Calcium Magnesium Total Bilirubin AST ALT Alkaline Phosphatase Troponin I < 0.03
--- NOTE | 2019-01-17 11:28 | Electrocardiograph Report ---
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
--- NOTE | 2019-01-17 13:36 | Event Note ---
Date of Encounter: 01/17/19 Time of Encounter: 13:34 Mr. Domingo is a 68-year-old [place] male who had undergone a right femoral to [id number] popliteal artery bypass graft with PTFE last week. The patient was discharged postoperatively without issue. Yesterday he was on his friends from origin acute onset LOWER extremity pain that radiated up into his torso. He was admitted for further evaluation. While here the patient complained of right proximal thigh pain and I was asked see the patient. On exam his bypass graft appears to be patent. He does have an area of induration on the proximal medial aspect of the right groin. It is nonpulsatile. There is no bruit. He has a small swelling at the skin incision though there is no drainage from this area. There is no discoloration of the skin. The patient may have a hematoma this area and so therefore I will obtain a duplex scan of his graft today to rule out the possibility of this issue.
--- NOTE | 2019-01-17 16:22 | Internal Med Progress Note ---
Hospitalist Progress Note - Encounter Date of Encounter: 01/17/19 Time of Encounter: 12:00 - Subjective Interval History: Mr. Domingo is a 68 year old male with known PMH of HTN, HLD, CAD, Severe PAD s/p recent Fem Pop bypass by Dr. Campbell pt presented to ER with complaints of epigastric and sub sternal chest discomfort. But his main concern if about pain in his Rt groin with some swelling where he has surgery recently. He denied any more CP. He still has Rt groin pain. - Exam Vitals: Temp Pulse Resp BP Pulse Ox 98.0 F 72 16 143/78 100 01/17/19 15:19 01/17/19 15:19 01/17/19 15:19 01/17/19 15:19 01/17/19 15:19 Exam: Gen: Alert, awake, Oriented to time,place and person Chest: Diminished breath sounds B/L, No wheezing, No crackles, No rales Heart: S1S2+ RRR No murmurs Abd: Soft, NT, BS +, No organomegaly Ext: Mild swelling with tenderness noticed in Rt groin. pulses are palpable, No calf tenderness Neuro : No acute focal neuro deficits noticed Skin: No rash. - Assessment and Plan (1) Chest pain Current Visit: Yes Status: Acute Assessment and Plan: atypical CP negative serial trop x 3 No acute ischemic changes His CP seems to be more likely GERD related this time card did not recommend any work up now, wanted him to f/u them as an out pt (2) Groin mass Current Visit: Yes Status: Acute Assessment and Plan: noticed mild swelling in Rt groin where he had recent surgery talked to Dr. Campbell vascular surgery - who ordered US of Rt Groin will f/u on results His venous doppler came back as negative for DVT (3) DVT prophylaxis Current Visit: Yes Status: Acute Assessment and Plan: on Heparin SQ. (4) Post-op pain Current Visit: Yes Status: Acute Assessment and Plan: cont supportive care (5) COPD (chronic obstructive pulmonary disease) Current Visit: No Status: Chronic Assessment and Plan: resumed home INH regimen (6) Hypertension Current Visit: No Status: Chronic - Time Spent with Patient Total time spent is greater than 50% in coordination of care (as documented) at patient's floor/unit and/or counseling patient: Internal Medicine: Result - Labs CBC & Chem 7: 01/17/19 03:01 01/17/19 03:01 Labs: Short CBC 01/16/19 01/17/19 Range/Units 19:27 03:01 WBC 10.5 9.2 (4.3-11.1) K/mcL Hgb 10.4 L 10.2 L (12.9-16.9) g/dL Hct 32.2 L 30.7 L (37.5-50.1) % Plt Count 402 H D 333 (140-400) K/mcL Neutrophils # 6.9 5.3 (1.6-8.9) K/mcL BMP 01/16/19 01/17/19 19:27 03:01 Sodium 137 138 Potassium 3.5 3.4 L Chloride 104 107 Carbon Dioxide 24 22 L BUN 20 17 Creatinine 0.87 0.94 Glucose 138 H 149 H Calcium 9.5 9.2 Cardiac Enzymes 01/16/19 01/17/19 01/17/19 Range/Units 19:27 03:01 08:42 Troponin I < 0.03 < 0.03 < 0.03 (< 0.04) ng/mL Liver Function 01/17/19 Range/Units 03:01 Total Bilirubin 0.4 (0.3-1.0) mg/dL AST 9 L (13-39) Units/L ALT 11 (7-52) Units/L Alkaline Phosphatase 59 (34-104) Units/L Albumin 4.0 (3.5-5.7) g/dL - ABG Interpretation ABG results: PT/INR, D-dimer PT 10.9 Seconds (9.4-12.1) 01/17/19 03:01 - Impressions Impressions Chest X-Ray 01/16/19 19:27 IMPRESSION: No acute pulmonary disease. Small hiatal hernia evident. Calcific atherosclerotic disease aorta. D/ / Christopher Najera / Christopher Najera Interpreting Provider: Christopher Najera Consult Discharge Plan - Plan [facility]errals: [facility] [Primary Care Provider] - (1) Chest pain Qualifiers: Chest pain type: unspecified Qualified Code(s): R07.9 - Chest pain, unspecified (5) COPD (chronic obstructive pulmonary disease) Qualifiers: COPD type: unspecified COPD Qualified Code(s): J44.9 - Chronic obstructive pulmonary disease, unspecified (6) Hypertension Qualifiers: Hypertension type: essential hypertension Qualified Code(s): I10 - Essential (primary) hypertension
[2019-01-17] MEDS ORDERED: amLODIPine 5 MG TABLET PO SCH (21:00)
[2019-01-17] MEDS ORDERED: Topiramate 25 MG TABLET PO SCH (21:00)
[2019-01-17] MEDS ORDERED: Melatonin 3 MG TABLET PO SCH (21:00)
[2019-01-18] MEDS: *HR* Heparin 5,000 UNIT/ML VIAL SQ SCH (06:10)
[2019-01-18] MEDS: Aspirin 325 MG TABLET PO SCH (07:51)
[2019-01-18] MEDS: *HR* HYDROcodone/Acet 5/325 mg TABLET PO PRN (07:57)
[2019-01-18 08:27] VITALS: BP 146/82
--- NOTE | 2019-01-18 10:40 | Discharge Summary ---
- NOTES TO OUTPATIENT PROVIDER Notes to Outpatient Provider: f/u with PCP in one week. Date of Encounter: 01/18/19 Time of Encounter: 10:34 - Discharge Diagnosis (1) Groin mass Priority: Primary Status: Acute (2) Post-op pain Priority: Primary Status: Acute (3) Chest pain Priority: Primary Status: Acute Qualifiers: Chest pain type: unspecified Qualified Code(s): R07.9 - Chest pain, unspecified (4) DVT prophylaxis Priority: Secondary Status: Acute (5) COPD (chronic obstructive pulmonary disease) Priority: Secondary Status: Chronic Qualifiers: COPD type: unspecified COPD Qualified Code(s): J44.9 - Chronic obstructive pulmonary disease, unspecified (6) Hypertension Priority: Secondary Status: Chronic Qualifiers: Hypertension type: essential hypertension Qualified Code(s): I10 - Essential (primary) hypertension Hospital course: Mr. Domingo is a 68 year old male with known PMH of HTN, HLD, CAD, Severe PAD s/p recent Fem Pop bypass by Dr. Campbell pt presented to ER with complaints of epigastric and sub sternal chest discomfort. But his main concern is about pain in his Rt groin with some swelling where he has surgery recently. He was admitted in the hospital and placed him on court recording monitor. His serial troponin were came back as negative. His CP seems to be more likely GERD related this time card did not recommend any work up now, wanted him to f/u them as an out pt. Regarding his Rt groin swelling, he went for venous doppler which came back as negative for DVT and arterial doppler did not show any Pseudo aneurysm. Pt was evaluated by vascular surgery who recommend to f/u with him as an out pt. - Time Spent with Patient Total time spent providing and/or coordinating discharge services: - Discharge Medications Prescriptions: Continued hydrOXYzine HCl [Hydroxyzine HCl] 25 mg PO BID PRN PRN Reason: Anxiety Albuterol Sulfate [Proventil Inhaler] 2 puff IH Q4H PRN PRN Reason: Shortness Of Breath Melatonin [Melatin] 6 mg PO HS Benazepril HCl [Lotensin] 20 mg PO DAILY amLODIPine [Norvasc] 5 mg PO HS Topiramate [Topamax] 50 mg PO HS Aspirin 325 mg PO DAILY DULoxetine [Cymbalta] 30 mg PO DAILY Fluticasone Propionate Nasal [Flonase] 2 spr NS HS PRN PRN Reason: Allergy Symptoms Omeprazole [PriLOSEC] 20 mg PO DAILY Trazodone HCl 50 mg PO HS HYDROcodone/Acet 5/325 mg [[place] 5-325 mg] 1 tab PO Q6HR PRN 7 Days #28 tablet PRN Reason: Moderate Pain Home Medications: Albuterol Sulfate [Proventil Inhaler] 2 puff IH Q4H PRN 09/10/18 [History] Benazepril HCl [Lotensin] 20 mg PO DAILY 09/10/18 [History] Melatonin [Melatin] 6 mg PO HS 09/10/18 [History] Topiramate [Topamax] 50 mg PO HS 09/10/18 [History] amLODIPine [Norvasc] 5 mg PO HS 09/10/18 [History] hydrOXYzine HCl [Hydroxyzine HCl] 25 mg PO BID PRN 09/10/18 [History] Aspirin 325 mg PO DAILY 01/06/19 [History] DULoxetine [Cymbalta] 30 mg PO DAILY 01/06/19 [History] Fluticasone Propionate Nasal [Flonase] 2 spr NS HS PRN 01/06/19 [History] Omeprazole [PriLOSEC] 20 mg PO DAILY 01/06/19 [History] Trazodone HCl 50 mg PO HS 01/06/19 [History] HYDROcodone/Acet 5/325 mg [[place] 5-325 mg] 1 tab PO Q6HR PRN 7 Days #28 tablet 01/10/19 [Rx] Allergies/Adverse Reactions: Allergy/AdvReac Type Severity Reaction Status Date / Time haloperidol [From Haldol] AdvReac Swelling Verified 09/10/18 11:52 of Lip/Tongue/Throat Date of admission: 01/16/19 21:42 [facility] care physician: [facility] Consults: 01/16/19 20:39 Consult to Vascular Surgery [CONS] Stat Consulting Provider: [facility] [place] Reason for Consult: Status post fem bypass. Pain at site Time Notified: 20:39 Call Completed: No 01/17/19 02:23 Consult to Cardiology [CONS] Routine Comment: Consulting Provider: Cardiology [facility] Reason for Consult: recurrent chest pain; had stress test August, Call Completed: No - Constitutional Vitals: Temp Pulse Resp BP Pulse Ox 98.2 F 54 14 146/82 98 01/18/19 08:21 01/18/19 08:21 01/18/19 08:21 01/18/19 08:21 01/18/19 08:21 General appearance: Present: cooperative, A&O X 3, no acute distress, answers questions appropriately Exam: Gen: Alert, awake, Oriented to time,place and person Chest: Diminished breath sounds B/L, No wheezing, No crackles, No rales Heart: S1S2+ RRR No murmurs Abd: Soft, NT, BS +, No organomegaly Ext: Mild swelling with tenderness noticed in Rt groin. pulses are palpable, No calf tenderness Neuro : No acute focal neuro deficits noticed Skin: No rash. - Patient Status Disposition: Home, Self-Care Condition: Good Overall status at discharge: patient is back to baseline - Discharge Instructions Follow Up With: OJ,PCP [Primary Care Provider] - 02/03/19 10:00 am Fernando Campbell MD [Partnered Physician] - Estelle Nunes DO [Partnered Physician] - Forms: ED Satisfaction Letter - Diet and Activity Activity: increase activity as tolerated Diet: low salt diet
--- NOTE | 2019-01-18 11:17 | Event Note ---
Date of Encounter: 01/18/19 Time of Encounter: 08:00 Patient had an uneventful night. I reviewed the duplex scan. Bypass graft is patent. Patient has a collection of fluid in the deep subcutaneous space but it does not involve the graft. There is no pseudoaneurysm. Patient may be discharged. Patient to follow-up in the vascular surgery clinic in 1 week.
== END 2019-01-18 17:04 | disposition home or self-care (01) ==
LOC: 3BNU 19:00 → EMEROOARM 19:00 → 3BNU 22:04
PROVIDERS: ADMIT Family Medicine; ATTEND Family Medicine